=== PATIENT | male | born 1995 | race Caucasian/White ===

== ENCOUNTER 2020-07-19 08:20 | Outpatient (NON) | payer OTHER, SELFPAY ==
[2020-07-24 08:54] LABS: SARS-CoV-2 RNA PCR Positive
== END 2020-07-19 08:21 ==
LOC: ANHCOVIDDT 08:21
PROVIDERS: PCP Internal Medicine; Visit Provider Physician Assistant
DX: U07.1 COVID-19 (principal)
CPT/HCPCS: 87635; C9803; U0003

== ENCOUNTER → 2021-05-23 00:44 | Outpatient (CLI) | payer OTHER, SELFPAY ==
[2021-05-23 18:08] LABS: SARS-CoV-2 RNA PCR Negative
== END ==
PROVIDERS: PCP Internal Medicine; Visit Provider Physician Assistant
DX: Z20.822 Contact with and (suspected) exposure to COVID-19 (principal); R09.89 Other specified symptoms and signs involving the circulatory and respiratory systems
CPT/HCPCS: C9803; U0003; U0005

== ENCOUNTER 2022-09-08 16:07 | Outpatient (CLI) | payer BC, SELFPAY ==
[2022-09-08 17:30] LABS: Influenza A QL RT-PCR Negative (Negative); Influenza B QL RT-PCR Negative (Negative)
== END 2022-09-08 16:08 | disposition home or self-care (01) ==
LOC: ANHLAB 16:10
PROVIDERS: PCP Internal Medicine; Visit Provider Internal Medicine
DX: R50.9 Fever, unspecified (principal)
CPT/HCPCS: 87502

== ENCOUNTER 2022-11-26 16:15 | Emergency (ER) | payer BC, SELFPAY ==
--- NOTE | ~2022-11-26 | US_ITS ---
US venous doppler LE RT DATE: 11/26/2022 17:03 INDICATION: Swelling and erythema of right lower extremity TECHNIQUE: Real-time and color flow imaging and Doppler analysis of the veins of the right lower extr emity COMPARISON: None FINDINGS: . There is spontaneous and phasic flow and normal augmentation and color flow signal and no rmal compression of the right common femoral, femoral and popliteal veins. The posterior tibial and peroneal veins not visualized, apparently due to body habitus IMPRESSION: Posterior tibial and peroneal veins are not visualized, apparently due to body habitus No evidence of deep venous thrombosis of common femoral, femoral or popliteal veins Reviewed, dictated and finalized at [facility]. Reviewed, dictated and finalized at location [facility]. IMPRESSION: Posterior tibial and peroneal veins are not visualized, apparently due to body habitus No evidence of deep venous thrombosis of common femoral, femoral or popliteal v eins
[2022-11-26 16:25] VITALS: BP 145/88; PULSE 98; RESP 19; TEMP 37.1; O2SAT 98
--- NOTE | 2022-11-26 17:17 | ED.GENADULT ---
HPI - General Adult General Chief complaint: Extremity Problem,Nontraumatic Stated complaint: right leg swelling possible cellulitis Time Seen by Provider: 11/26/22 17:15 Source: RN notes reviewed History of Present Illness HPI narrative: Patient presents emergency department from home for right leg redness. Patient states he has had a history of cellulitis in his right lower leg several times before in the past. He states he began to notice redness of his right lower leg 2 days ago. States was associated with a fever up to 101 degrees but states he has had no fevers today. He denies any trauma or injury denies any open wounds states he does have a history of chronic swelling in his legs and sees a vein doctor and is on spironolactone. He denies any chest pain or shortness of breath denies any numbness or tingling of the extremities. Patient was able to to review his old medications list and does note that he has been on Keflex before in the past with good resolution Related Data Home Medications Medication Instructions Recorded Confirmed fexofenadine 180 mg tablet 180 mg PO DAILY 09/17/19 09/10/22 (Isa Allergy) multivitamin (Multiple Vitamins 1 tablet PO DAILY 09/17/19 09/10/22 tablet) cholecalciferol (vitamin D3) 125 10,000 unit PO DAILY 12/19/20 09/10/22 mcg (5,000 unit) capsule magnesium 250 mg tablet 250 mg PO DAILY 07/17/21 09/10/22 omega 0-ppx-yaw-fish oil 1,200 mg cap PO 07/17/21 09/10/22 (144 mg-216 mg) capsule (Fish Oil) fluticasone propionate 50 1 spray intranasal DAILY 11/19/22 mcg/actuation nasal spray,suspension (Flonase Allergy Relief) mecobalamin (vitamin B12) 1,000 1,000 mcg PO DAILY 11/19/22 mcg chewable tablet Allergies Allergy/AdvReac Type Severity Reaction Status Date / Time peanut Allergy Severe Hives Verified 11/26/22 17:21 egg Allergy Mild Hives Verified 11/26/22 17:21 lisinopril Allergy Mild Unknown Verified 11/26/22 17:21 Review of Systems Review of Systems: Gen. reports fever ENT: Denies congestion Respiratory: Denies shortness of breath or cough CV: Denies chest pain or palpitations GI: Denies abdominal pain nausea, emesis Musculoskeletal: Denies back pain or muscle pain Neuro: Denies numbness, tingling, weakness or focal weakness Skin: See HPI Except as documented, all other systems reviewed and negative [facility] Past Medical History Medical History COVID-19 Family History Family History Father Hypertension Mother Patient's mother is in good health Social History Social History Smoking status: Never smoker Second hand tobacco smoke exposure: No Alcohol intake: current Lack of Transportation: No Lack of Food: Never True Current Housing: I Have Housing Concerned About Future Housing: No Difficulty Paying Gas/Electric Bills: No Difficulty Paying for Meds: No Currently Unemployed: No Education: High School Diploma/GED Difficulty w/ Childcare or Family Care: No Exam Narrative: APPEARANCE: No acute distress, nontoxic, resting in bed EYES: EOMI HEENT: Normocephalic, atraumatic RESPIRATORY: No respiratory distress Clear to auscultation bilaterally with no rhonchi wheezing or rales. CARDIOVASCULAR: Regular rate and rhythm without murmurs rubs or gallops. ABDOMINAL: Soft, nontender, nondistended MUSCULOSKELETAl: Moves all extremities. No clubbing, cyanosis 4+ edema in the bilateral lower extremities, right dorsalis pedis pulse 2+ NEURO: Awake and alert. Following commands, speech normal, no focal deficits SKIN:: Warm, dry. No rashes lesions or abrasions erythema of the right lower extremity that starts proximal to the ankle and goes to the mid lower leg that is circumferential but does not extend up past the mid tibia there is no open wounds drainage or fluctuance PSYCH
[2022-11-26] MEDS: CEPHALEXIN 500 MG CAPSULE PO (17:21)
== END 2022-11-26 17:35 | disposition home or self-care (01) ==
PROVIDERS: Emergency Provider Emergency Medicine; PCP Internal Medicine
DX: L03.115 Cellulitis of right lower limb (principal); Z79.51 Long term (current) use of inhaled steroids; Z79.84 Long term (current) use of oral hypoglycemic drugs
CPT/HCPCS: 93971; 99284; A9270

== ENCOUNTER 2022-11-30 17:00 | Outpatient (CLI) | payer BC, SELFPAY ==
[2022-11-30 17:47] LABS: Influenza A QL RT-PCR Negative (Negative); Influenza B QL RT-PCR Negative (Negative); SARS-CoV-2 RNA PCR Negative
== END 2022-11-30 17:01 | disposition home or self-care (01) ==
LOC: ANHLAB 17:01
PROVIDERS: PCP Internal Medicine; Visit Provider Internal Medicine
DX: R50.9 Fever, unspecified (principal); Z20.822 Contact with and (suspected) exposure to COVID-19
CPT/HCPCS: 87636

== ENCOUNTER 2022-12-01 14:15 | Outpatient (CLI) | payer BC, SELFPAY ==
[2022-12-01 15:14] LABS: Basophils Absolute Auto 0.1 K/mm3 (0.0-0.1); Basophils Percent Auto 0.7 % (0.2-1.2); Eosinophils Absolute Auto 0.3 K/mm3 (0-0.3); Eosinophils Percent Auto 4.1 % (0-4.4); Hematocrit 42.7 % (42.0-52.0); Hemoglobin 13.6 g/dL (14.0-18.0); Immature Granulocyte Absolute 0.26 K/mm3 (0.00-0.031); Immature Granulocyte Percent A 3.6 % (0-0.5); Lymphocytes Absolute Auto 2.56 K/mm3 (0.9-3.2); Lymphocytes Percent Auto 35.2 % (18.3-44.2); Mean Corpuscular HGB Conc 31.9 g/dl (32-36); Mean Corpuscular Hemoglobin 28.3 pg (26-34); Mean Platelet Volume 9.9 fl (7.4-10.4); Monocytes Absolute Auto 0.7 K/mm3 (0.1-0.6); Monocytes Percent Auto 9.4 % (2.6-8.5); Neutrophils Absolute Auto 3.4 K/mm3 (1.3-6.7); Platelet Count Result 269 k/mm3 (150-375); Red Cell Distribution Width 14.5 % (11.5-14.5); White Blood Count 7.3 K/mm3 (4.5-10.0)
[2022-12-01 15:35] LABS: Alanine Aminotransferase 26 U/L (6-50); Albumin Level 4.2 g/dL (3.5-5.1); Alkaline Phosphatase 70 U/L (38-126); Anion Gap 12 mmol/L (8-16); Aspartate Amino Transferase 26 U/L (17-59); Bilirubin,Total 0.5 mg/dL (0.2-1.3); Blood Urea Nitrogen 14 mg/dL (9-20); Calcium 8.7 mg/dL (8.4-10.2); Carbon Dioxide 24 mmol/L (22-30); Chloride 104 mmol/L (98-107); Cholesterol 141 mg/dL (0-200); Estimated Glomerular Filt Rate > 60; Glucose 128 mg/dL (65-110); HDL Direct 20 mg/dL; Potassium 4.3 mmol/L (3.4-5.0); Sodium 140 mmol/L (137-145); Triglycerides 180 mg/dL (<150)
[2022-12-01 15:45] LABS: LDL Cholesterol Direct 89 mg/dL
[2022-12-01 16:24] LABS: Creatinine Urine 4.6 mg/dL
[2022-12-01 16:44] LABS: Folic Acid > 20.0 ng/mL (2.76->20)
[2022-12-01 16:49] LABS: Microalbumin Urine Random < 6.0 mg/L (0-16.7)
[2022-12-01 16:50] LABS: Hemoglobin A1C 6.9 % (<5.7)
[2022-12-05 13:26] LABS: Testosterone Free 6.3 pg/mL (35.0-155.0); Testosterone Total 41 ng/dL (250-1100)
== END 2022-12-01 14:16 | disposition home or self-care (01) ==
LOC: ANHLAB 14:16
PROVIDERS: PCP Internal Medicine; Visit Provider Internal Medicine
DX: E11.9 Type 2 diabetes mellitus without complications (principal); E78.5 Hyperlipidemia, unspecified; R53.83 Other fatigue
CPT/HCPCS: 36415; 80053; 80061; 82043; 82607; 82746; 83036; 84402; 84403; 84443; 85025

== ENCOUNTER 2023-05-14 20:52 | Inpatient (IN) | payer BC, SELFPAY ==
[2023-05-14] VITALS (13 sets, daily range): BP systolic 150–157; BP diastolic 71–83; PULSE 111–127; RESP 15–27; TEMP 36.7; O2SAT 96–100
--- NOTE | ~2023-05-14 | US_ITS ---
EXAMINATION: US soft tissue LE RT DATE: 05/17/2023 15:12 INDICATION: Right lower limb cellulitis. Fever. TECHNIQUE: Multiple grayscale and Doppler ultrasound images of the right lower limb were obtained. COMPARISON: None FINDINGS: There is hyperechoic soft tissue and edema in the right calf, consistent with cellulitis. N o abscess. IMPRESSION: 1. Right calf cellulitis. No abscess. Reviewed, dictated and finalized at location [facility].
--- NOTE | ~2023-05-14 | US_ITS ---
EXAMINATION: US venous doppler LE RT DATE: 05/15/2023 13:37 INDICATION: swelling, erythema . TECHNIQUE: Grayscale images without and with compression and Doppler images of the right lower extrem ity veins were obtained. COMPARISON: None FINDINGS: Difficult examination due to body habitus. The right common femoral vein, profunda (deep) femoral vei n, femoral vein, popliteal vein, peroneal vein, posterior tibial veins, and greater saphenous vein ar e patent. The right gastrocnemius vein was not evaluated. IMPRESSION: Patent right lower extremity veins. No evidence of deep venous thrombosis. Reviewed, dictated and finalized at location [facility].
--- NOTE | ~2023-05-14 | XR_ITS ---
XR chest 1V portable 05/17/2023 08:13 Indication: Fever Procedure: AP portable chest Comparison: Comparison to multiple prior studies sequentially, with oldest reviewed study dated 10/26. Findings: Cardiomegaly. Mild interstitial edema. No pleural effusion or pneumothorax. No acute osseou s abnormality. Impression: 1: Cardiomegaly with mild interstitial edema. Reviewed, dictated and finalized at location L. Impression: 1: Cardiomegaly with mild interstitial edema.
--- NOTE | ~2023-05-14 | XR_ITS ---
XR chest 1V portable DATE: 05/15/2023 11:59 INDICATION: Shortness of breath TECHNIQUE: Portable AP chest on 05/15/2023 at 1155 hours COMPARISON: 03/17/2019 PA and lateral chest FINDINGS: Normal heart size. No pulmonary infiltrate or consolidation, pleural effusion or pulmonary vascular congestion or pneumothorax is detected. IMPRESSION: No active cardiopulmonary disease Reviewed, dictated and finalized at location A.
--- NOTE | 2023-05-14 22:04 | ED.GENADULT ---
HPI - General Adult General Chief complaint: Skin/Abscess/Foreign Body <Kaleb Cheney PA-C - Last Filed: 05/15/23 02:50> Stated complaint: right injury-cellulitis <YESENIA Esparza Last Filed: 05/15/23 02:50> Time Seen by Provider: 05/14/23 21:33 <Kaleb Cheney PA-C - Last Filed: 05/15/23 02:50> Source: patient <YESENIA Esparza Last Filed: 05/15/23 02:50> Mode of arrival: ambulatory <YESENIA Esparza Last Filed: 05/15/23 02:50> Limitations: no limitations <Kaleb Cheney PA-C - Last Filed: 05/15/23 02:50> History of Present Illness HPI narrative: This is a 27-year-old male with PMH of HTN, DM T2, morbid obesity who presents to the ED with chief complaint of possible skin infection to the right lower leg onset this morning. Patient reports that he has had recurrent cellulitis in this leg. Reports pain, erythema and swelling that has fairly rapidly progressed over the course of the day. States she has done well in the past on outpatient antibiotics but has not had to be admitted for cellulitis as well. States he has a history of lymphedema in that leg and feels that a recent skin crack may have caused the cellulitis this time. Endorses chills but no recorded fevers. Endorses nausea that has since resolved. Denies any other lesions, trauma or injury. Denies any blood clot history. <Kaleb Cheney PA-C - Last Filed: 05/15/23 02:50> Related Data Home medications: Home Medications Medication Instructions Recorded Confirmed fexofenadine 180 mg tablet 180 mg PO DAILY PRN Allergy 09/17/19 05/15/23 (Isa Allergy) Symptoms multivitamin (Multiple Vitamins 1 tablet PO DAILY 09/17/19 05/15/23 tablet) cholecalciferol (vitamin D3) 125 10,000 unit PO DAILY 12/19/20 05/15/23 mcg (5,000 unit) capsule magnesium 250 mg tablet 250 mg PO Q12H 07/17/21 05/15/23 mecobalamin (vitamin B12) 1,000 1,000 mcg PO HS 11/19/22 05/15/23 mcg chewable tablet montelukast 10 mg tablet 10 mg PO HS 05/15/23 05/15/23 <Kaleb Cheney PA-C - Last Filed: 05/15/23 02:50> Allergies/adverse reactions: Allergies Allergy/AdvReac Type Severity Reaction Status Date / Time peanut Allergy Severe Hives Verified 05/15/23 01:41 egg Allergy Mild Hives Verified 05/15/23 01:41 lisinopril Allergy Mild Unknown Verified 05/15/23 01:41 <Kaleb Cheney PA-C - Last Filed: 05/15/23 02:50> Review of Systems Review of Systems: All systems as dictated in HPI <Kaleb Cheney PA-C - Last Filed: 05/15/23 02:50> [facility] Past Medical History Medical History: Medical History Anxiety and depression Asthma Bilateral lower extremity edema Body mass index (BMI) greater than 70 in adult (08/08/15) Cellulitis of right leg COVID-19 Essential (primary) hypertension Hematochezia Hyperglycemia Lymphedema Morbid (severe) obesity due to excess calories MAINOR (obstructive sleep apnea) Pure hypercholesterolemia Sepsis Type 2 diabetes mellitus Vitamin D deficiency <Kaleb Cheney PA-C - Last Filed: 05/15/23 02:50> Surgical History Surgical History: Surgical History History of tonsillectomy <Kaleb Cheney PA-C - Last Filed: 05/15/23 02:50> Family History Family History: Family History (Updated 05/15/23 @ 01:55 by Molina Branch RN) Father Hypertension Diabetes mellitus Anemia History of heart surgery Colon cancer Mother Autoimmune disorder Grandparent Skin cancer Grandparent Cancer Grandparent Glaucoma <Kaleb Cheney PA-C - Last Filed: 05/15/23 02:50> Social History Social History: Social History Smoking status: Never smoker Second hand tobacco smoke exposure: No Alcohol intake: current Drinks per week: 1 Substance use: never Lack of Transportation: No Lack of Food: Never Tr
[2023-05-14 22:30] LABS: Basophils Percent Auto 0.3 % (0.2-1.2); Eosinophils Absolute Auto 0.2 K/mm3 (0-0.3); Eosinophils Percent Auto 1.1 % (0-4.4); Hemoglobin 12.9 g/dL (14.0-18.0); Immature Granulocyte Absolute 0.07 K/mm3 (0.00-0.031); Immature Granulocyte Percent A 0.5 % (0-0.5); Lymphocytes Absolute Auto 0.74 K/mm3 (0.9-3.2); Mean Corpuscular HGB Conc 32.3 g/dl (32-36); Mean Corpuscular Hemoglobin 28.9 pg (26-34); Mean Corpuscular Volume 89.7 fl (80-100); Mean Platelet Volume 10.3 fl (7.4-10.4); Monocytes Absolute Auto 0.4 K/mm3 (0.1-0.6); Monocytes Percent Auto 2.7 % (2.6-8.5); Neutrophils Absolute Auto 13.5 K/mm3 (1.3-6.7); Neutrophils Percent Auto 90.4 % (45.5-73.1); Platelet Count Result 234 k/mm3 (150-375); Red Blood Count 4.46 M/mm3 (4.6-6.20); White Blood Count 14.9 K/mm3 (4.5-10.0)
[2023-05-14 22:52] LABS: Alanine Aminotransferase 28 U/L (6-50); Alkaline Phosphatase 63 U/L (38-126); Anion Gap 11 mmol/L (8-16); Aspartate Amino Transferase 32 U/L (17-59); Bilirubin,Total 0.4 mg/dL (0.2-1.3); Blood Urea Nitrogen 14 mg/dL (9-20); CRP 1.3 mg/dL (<1.0); Calcium 8.8 mg/dL (8.4-10.2); Carbon Dioxide 23 mmol/L (22-30); Chloride 106 mmol/L (98-107); Estimated CRCL calculation 191 ml/min; Estimated Glomerular Filt Rate > 60; Glucose 171 mg/dL (65-110); Potassium 4.4 mmol/L (3.4-5.0); Sodium 140 mmol/L (137-145)
[2023-05-14 23:07] LABS: Lactic Acid Reflex 2.9 mmol/L (0.7-2.0)
[2023-05-14] MEDS: ceFAZolin 1 GM/NS 50 ML 1 GM/50 ML BAG IVPB (23:24)
[2023-05-14] MEDS: SODIUM CHLORIDE 0.9% IV 1,000 ML 999 ML IV CONT ×2 (23:24)
[2023-05-15] VITALS (24 sets, daily range): BP systolic 110–155; BP diastolic 40–83; PULSE 112–130; RESP 16–27; TEMP 36.6–38.6; O2SAT 93–100; BMI 78.9
--- NOTE | 2023-05-15 01:25 | ADMGEN ---
This patient, Mike Kemp, was admitted to Medical Room 248-. Patient/family oriented to hospital policies and general routines including ID bracelet, bed and alarms, visiting hours, pain management, procedures, bathroom and other care routines, personal items, smoking policy, room service/diet, and visiting hours. Information on how to activate the Rapid Response Team has been discussed. Patient/Family are encouraged to report perceived risks to care and to ask questions if they do not understand what they are told or what they should do.
[2023-05-15 01:47] LABS: Reflex Lactic Acid Yes or No Add Lactic
[2023-05-15 02:50] LABS: Lactic Acid 2.9 mmol/L (0.7-2.0)
[2023-05-15] MEDS: SODIUM CHLORIDE 0.9% IV 1,000 ML 125 ML IV CONT ×2 (03:33→18:24)
--- NOTE | 2023-05-15 04:17 | PM.IMHP ---
H&P: HPI History of Present Illness Date/Time: 05/15/23 04:17 Chief Complaint: Cellulitis of right leg Narrative: 27-year-old male with a past medical history of class 3 morbid obesity BMI 78.9, obstructive sleep apnea, asthma, essential hypertension and diabetes who presented to the ER with self-reported history of cellulitis of right lower extremity. The patient reports that he felt in his usual health until around 17:00 on the day of presentation. He suddenly developed right lower extremity erythema and warmth. It was associated with some discomfort and body aches. The erythema rapidly progressed and worsened and he decided come to the ER a couple hours later. He has not had any abrasions or scrapes to his lower extremities but does have chronic lymphedema. He reports that he has had cellulitis in this extremity multiple times in the past. His last episode was about 2 or 3 months ago and he was managed with outpatient Keflex. He reports that since his last episode of cellulitis he has been officially diagnosed as diabetic. He has been on metformin for several months. He is A1c came back at 6.9% on April 08 any was started on Ozempic. He has not noticed any weeping or drainage from his extremities. He denies any known fevers or chills. However after patient had arrived on the medical floor the patient did spike fever with T-max of 101.4?. He is also noted to be tachycardic and had leukocytosis. In the ER 2 L of fluid was ordered but fluid administration was not completed until after the patient had arrived to the medical floor. Despite 2 L of fluid bolus patient did remain tachycardic. He reports a little bit of nausea earlier in the day but no vomiting. His not been able to track his weight at home due to limits of scales. He denies any chest pain or shortness of breath. He has not noticed any palpitations. He does have obstructive sleep apnea and had his most recent sleep study was in 2019. He has never been successful in complying with CPAP as he does not tolerate a full face mask. He reports shortness of breath if he tries to lay on his back in sleeve his symptoms are improved any lays on his side. Review of Systems Review of Systems: 12 systems were reviewed with pertinent positives and negatives per HPI. Except as documented in the HPI, all other systems were reviewed and are negative. [facility] Past Medical History Medical History (Updated 05/15/23 @ 07:02 by Patricia Jose DO) Anxiety and depression Asthma Body mass index (BMI) greater than 70 in adult (08/08/15) COVID-19 Essential (primary) hypertension Lymphedema of both lower extremities Morbid (severe) obesity due to excess calories BMI greater than 70 MAINOR (obstructive sleep apnea) Does not use CPAP at home Pure hypercholesterolemia Type 2 diabetes mellitus Vitamin D deficiency Surgical History Surgical History (Updated 05/15/23 @ 07:04 by Patricia Jose DO) History of colonoscopy with polypectomy Approximately 2019 History of tonsillectomy Family History Family History (Updated 05/15/23 @ 07:04 by Patricia Jose DO) Father Hypertension Diabetes mellitus Anemia History of heart surgery Colon cancer, Onset Age: 50 Mother Autoimmune disorder Grandparent Skin cancer Grandparent Cancer Grandparent Glaucoma Sibling Obesity Social History Social History (Updated 05/15/23 @ 07:05 by Patricia Jose DO) Social History: The patient is single and lives with his parents. 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 He drinks 2-3 shots of Tequila every week or 2. Code status: Full code Surrogate decision maker: Shira Justo (mother) Smoking status: Never smoker Second hand tobacco smoke exposure: No Alcohol intake: current Drinks per week: 1 Substance use: never Lack of Transportation: No Lack of Food: Never True Current Housing: I Have Housing Concerned About Future Housing: No Difficulty Paying Gas
--- NOTE | 2023-05-15 04:23 | ECG_ITS ---
Measurements Intervals [place] Rate: 127 P: 36 NE: 163 QRS: 17 QRSD: 111 T: 12 QT: 307 QTc: 446 Interpretive Statements SINUS TACHYCARDIA INTRAVENTRICULAR CONDUCTION DELAY DELAYED PRECORDIAL R/S TRANSITION LOW QRS VOLTAGE IN LIMB LEADS BASELINE ARTIFACT- AVF ABNORMAL ECG COMPARED TO ECG 06/26/2019 12:19:13 SINUS TACHYCARDIA NOW PRESENT Electronically Signed On 05-15-2023 7:09:36 CDT by Valdo Nichols D.O.
[2023-05-15] MEDS: ACETAMINOPHEN 325 MG TABLET 650 MG PO ×3 (04:57→18:24)
[2023-05-15 05:04] LABS: Hematocrit 39.9 % (42.0-52.0); Hemoglobin 12.2 g/dL (14.0-18.0); Mean Corpuscular HGB Conc 30.6 g/dl (32-36); Mean Corpuscular Hemoglobin 28.8 pg (26-34); Mean Corpuscular Volume 94.1 fl (80-100); Mean Platelet Volume 10.2 fl (7.4-10.4); Platelet Count Result 199 k/mm3 (150-375); Red Blood Count 4.24 M/mm3 (4.6-6.20); Red Cell Distribution Width 14.1 % (11.5-14.5); White Blood Count 15.3 K/mm3 (4.5-10.0)
[2023-05-15 05:19] LABS: Anion Gap 13 mmol/L (8-16); Blood Urea Nitrogen 13 mg/dL (9-20); Calcium 8.5 mg/dL (8.4-10.2); Carbon Dioxide 18 mmol/L (22-30); Chloride 108 mmol/L (98-107); Estimated CRCL calculation 173 ml/min; Estimated Glomerular Filt Rate > 60; Glucose 164 mg/dL (65-110); Potassium 3.9 mmol/L (3.4-5.0); Sodium 139 mmol/L (137-145)
[2023-05-15 05:21] LABS: Lactic Acid Reflex 2.3 mmol/L (0.7-2.0)
[2023-05-15 05:36] LABS: Band Neutrophils Percent 8 % (0-6); Lymphocytes Absolute Manual 0.76 K/mm3 (1.1-4.5); Monocytes Absolute Manual 0.61 K/mm3 (0.1-0.90); Monocytes Percent Manual 4 % (3-9); Neutrophils Absolute Manual 13.92 K/mm3 (1.3-6.7); Neutrophils Percent Manual 83 % (46-73); Total Cells Counted 100
[2023-05-15 05:37] LABS: Platelet Estimate Adequate (Adequate); Schistocytes None Seen (NORMAL)
[2023-05-15 05:51] LABS: Procalcitonin 1.6 ng/mL
--- NOTE | 2023-05-15 07:21 | PM.IMPN ---
Progress Note: A&P Assessment and Plan (1) Sepsis: Qualifiers: Sepsis acute organ dysfunction status: without acute organ dysfunction Sepsis type: sepsis due to unspecified organism Qualified Code(s): A41.9 - Sepsis, unspecified organism Code(s): A41.9 - Sepsis, unspecified organism Status: Acute Assessment and Plan: Lactic acidosis 2.9, WBC 15,000, Tachy 130's, Febrile 101.4, procal 1.6, CRP 1.3 S/P 2 L fluid resuscitation. Patient is 221.8 kg. Lactic repeat 2.3. Now receiving a 3rd L of fluid. Repeat lactic 2.4. Continued elevation could be due to metformin as well. Holding now. Suspect source is cellulitis Received Cefazolin in the ED. Starting now on broad spectrum coverage with vanco and cefepime. IVF at 125 ml per hour. Still tachy at 120's. On tele. Acetaminophen prn for fever (2) Cellulitis of right lower extremity: Code(s): L03.115 - Cellulitis of right lower limb Status: Acute Assessment and Plan: Right lower extremity cellulitis (3) Type 2 diabetes mellitus: Qualifiers: Diabetes mellitus complication status: with hyperglycemia Diabetes mellitus assistant terminal manager insulin use: without skilled nursing use Qualified Code(s): E11.65 - Type 2 diabetes mellitus with hyperglycemia Code(s): E11.9 - Type 2 diabetes mellitus without complications Status: Acute Assessment and Plan: Hgb A1C 6.9% On metformin at home and Ozempic. Holding while inpatient. Accu checks and SSI BG ranging 160-170's (4) MAINOR (obstructive sleep apnea): Code(s): G47.33 - Obstructive sleep apnea (adult) (pediatric) Status: Acute Assessment and Plan: Order home settings with autotitrating orders Plan Broad spectrum abx IVF with bolus' Trend lactic Feeding:DM Analgesia:[place] 5-10 mg prn based on pain rating Thromboembolic prophylaxis: lovenox Ulcer prophylaxis: Pepcid Glycemic control: SSI and hypoglycemia protocol Bowel regimen: colace and miralax Lines: PIC Antibiotics: Vanco and cefe Subjective Date/time seen: 05/15/23 07:21 Interval history: This is a 27-year-old male with a past medical history of obesity, MAINOR, asthma, hypertension diabetes who presented to the ER overnight with a reported history of cellulitis to his right lower extremity. Prior to presentation he states he was in his usual state of health until the evening when he started to have erythema and pain to his right lower extremity. He also states he was having some body aches but no documented fever. He reports that he has had recurrent cellulitis episodes in this same extremity multiple times, with the last episode being 2-3 months ago and he was treated as an outpatient with Keflex. On arrival to the ED he was tachycardic in the 130's, BP 150/70, lactic 2.9, CRP, 1.3, WBCs 14.9, and febrile 101.4. He received 2 L of fluids in the ED and 1 gram of cefazolin. Blood cultures and MRSA swab pending. Repeat lactic remained elevated at 2.3 so he is currently receiving another bolus of fluids. 05/15: Patient appears unwell. He is mildly tachypneic and says that he was having some shortness of breath. Symptoms resolved with use of his albuterol inhaler. He does not have any inspiratory or expiratory wheeze on exam. He satting 97% on room air. He is flushed says that he has been having a fever off and on. Last documented fever was 101.4 on admission to the medical floor. His pain in his lower extremity is improved since receiving IV antibiotics and pain medication. He remains tachycardic on telemetry in the 120s with elevated heart rate in the 130s with activity. He has received a total 3 L bolus and his repeat lactic was 2.4. Patient appears euvolemic. He has been started on vancomycin and cefepime pain, will repeat a lactic this afternoon. He does say that he has increased production of sputum after wearing the CPAP. He normally does not wear a with CPAP at home. Given
[2023-05-15 07:55] LABS: Glucose Point of Care 125 mg/dl (65-105)
[2023-05-15] MEDS: SODIUM CHLORIDE 0.9% IV 1,000 ML 999 ML IV CONT ×2 (08:38→13:07)
[2023-05-15] MEDS: CEFEPIME 2 GM/NS 50 ML 2 GM/50 ML BAG IVPB ×3 (08:38→21:05)
[2023-05-15] MEDS: CHOLECALCIFEROL 1,000 UNITS TABLET 10000 UNITS PO (08:38)
[2023-05-15] MEDS: MULTIVITAMINS THERAPEUTIC TAB (*BKC) 1 TABLET PO (08:39)
[2023-05-15] MEDS: MAGNESIUM OXIDE 200 MG TABLET PO ×2 (08:39→21:05)
[2023-05-15] MEDS: LOSARTAN POTASSIUM 100 MG TABLET PO (08:39)
[2023-05-15] MEDS: metFORMIN HCL 500 MG TABLET PO (08:39)
[2023-05-15] MEDS: ATORVASTATIN 20 MG TABLET PO (08:40)
[2023-05-15] MEDS: FLUTICASONE/SALMETEROL 115-21 MCG INHALER 1 PUFF 2 PUFF INHALATION ×2 (08:49→20:19)
[2023-05-15] MEDS: ENOXAPARIN 40 MG/0.4 ML SYRINGE SUB-Q ×2 (08:54→21:51)
[2023-05-15] MEDS: AZELASTINE HCL NASAL 0.1% 137 MCG/SPR 30 ML BTL 2 SPRAY NASAL ×2 (09:03→21:04)
[2023-05-15] MEDS: HYDROcodone/acetaminophen (*CRX) 5-325 MG TABLET 1 TAB PO ×2 (09:03→15:30)
[2023-05-15 10:18] LABS: Lactic Acid Reflex 2.4 mmol/L (0.7-2.0)
[2023-05-15 11:50] LABS: Glucose Point of Care 177 mg/dl (65-105)
[2023-05-15 16:44] LABS: Lactic Acid Reflex 1.7 mmol/L (0.7-2.0)
[2023-05-15 17:03] LABS: Glucose Point of Care 119 mg/dl (65-105)
--- NOTE | 2023-05-15 19:37 | PC.NURSE ---
Spoke with patient about getting a bariatric bed, patient refused, wants to keep regular hospital bed
[2023-05-15] MEDS: CYANOCOBALAMIN 1,000 MCG TABLET 1000 MCG PO (21:05)
[2023-05-15] MEDS: MONTELUKAST SODIUM 10 MG TABLET PO (21:05)
[2023-05-15] MEDS: FAMOTIDINE 20 MG/2 ML VIAL IV PUSH (21:05)
[2023-05-15] MEDS: DOCUSATE SODIUM 100 MG CAPSULE PO (21:05)
[2023-05-15 21:32] LABS: Glucose Point of Care 102 mg/dl (65-105)
[2023-05-16] VITALS (15 sets, daily range): BP systolic 119–141; BP diastolic 58–77; PULSE 89–114; RESP 16–21; TEMP 36.4–38.4; O2SAT 93–98
[2023-05-16] MEDS: ACETAMINOPHEN 325 MG TABLET 650 MG PO ×2 (01:17→20:37)
[2023-05-16] MEDS: CEFEPIME 2 GM/NS 50 ML 2 GM/50 ML BAG IVPB ×3 (05:22→21:05)
[2023-05-16] MEDS: HYDROcodone/acetaminophen (*CRX) 5-325 MG TABLET 1 TAB PO (05:27)
[2023-05-16 05:33] LABS: Basophils Percent Auto 0.3 % (0.2-1.2); Eosinophils Percent Auto 0.2 % (0-4.4); Hematocrit 34.1 % (42.0-52.0); Hemoglobin 10.8 g/dL (14.0-18.0); Immature Granulocyte Absolute 0.12 K/mm3 (0.00-0.031); Immature Granulocyte Percent A 0.9 % (0-0.5); Lymphocytes Absolute Auto 1.61 K/mm3 (0.9-3.2); Lymphocytes Percent Auto 12.6 % (18.3-44.2); Mean Corpuscular HGB Conc 31.7 g/dl (32-36); Mean Corpuscular Hemoglobin 28.8 pg (26-34); Mean Corpuscular Volume 90.9 fl (80-100); Mean Platelet Volume 9.8 fl (7.4-10.4); Monocytes Percent Auto 7.7 % (2.6-8.5); Neutrophils Percent Auto 78.3 % (45.5-73.1); Platelet Count Result 169 k/mm3 (150-375); Red Blood Count 3.75 M/mm3 (4.6-6.20); Red Cell Distribution Width 14.6 % (11.5-14.5); White Blood Count 12.8 K/mm3 (4.5-10.0)
[2023-05-16 05:41] LABS: Alanine Aminotransferase 23 U/L (6-50); Albumin Level 3.5 g/dL (3.5-5.1); Alkaline Phosphatase 49 U/L (38-126); Anion Gap 11 mmol/L (8-16); Aspartate Amino Transferase 24 U/L (17-59); Bilirubin,Total 0.5 mg/dL (0.2-1.3); Blood Urea Nitrogen 10 mg/dL (9-20); Calcium 7.9 mg/dL (8.4-10.2); Carbon Dioxide 24 mmol/L (22-30); Chloride 105 mmol/L (98-107); Estimated CRCL calculation 158 ml/min; Estimated Glomerular Filt Rate > 60; Glucose 106 mg/dL (65-110); Magnesium 1.7 mg/dL (1.6-2.3); Potassium 3.8 mmol/L (3.4-5.0); Sodium 140 mmol/L (137-145)
--- NOTE | 2023-05-16 06:54 | PM.IMPN ---
Progress Note: A&P Assessment and Plan (1) Sepsis: Qualifiers: Sepsis acute organ dysfunction status: without acute organ dysfunction Sepsis type: sepsis due to unspecified organism Qualified Code(s): A41.9 - Sepsis, unspecified organism Code(s): A41.9 - Sepsis, unspecified organism Status: Acute Assessment and Plan: Lactic acidosis 2.9, WBC 15,000, Tachy 130's, Febrile 101.4, procal 1.6, CRP 1.3 S/P 2 L fluid resuscitation. Patient is 221.8 kg. Lactic repeat 2.3. Now receiving a 3rd L of fluid and maintenance fluids at 125 ml per hour. Lactic in the afternoon is 1.7. Suspect source is cellulitis Received Cefazolin in the ED. Starting now on broad spectrum coverage with vanco and cefepime. IVF decreased to 75 ml per hour. Tachycardia is improving, now more baseline 100's. On tele. Acetaminophen prn for fever Preliminary blood cultures with NGTD. MRSA swab pending. (2) Cellulitis of right lower extremity: Code(s): L03.115 - Cellulitis of right lower limb Status: Acute Assessment and Plan: Right lower extremity cellulitis Extensive erythema, edema, and warmth to right calf tracking up to the knee and down to the ankle. Redness is receding some from the ankle. Recurrent problem given his lymphedema. Ruled out lower extremity DVT (3) Type 2 diabetes mellitus: Qualifiers: Diabetes mellitus complication status: with hyperglycemia Diabetes mellitus jail insulin use: without terminal makeup operator use Qualified Code(s): E11.65 - Type 2 diabetes mellitus with hyperglycemia Code(s): E11.9 - Type 2 diabetes mellitus without complications Status: Acute Assessment and Plan: Hgb A1C 6.9% On metformin at home and Ozempic. Holding while inpatient. Accu checks and SSI BG ranging 160-170's (4) MAINOR (obstructive sleep apnea): Code(s): G47.33 - Obstructive sleep apnea (adult) (pediatric) Status: Acute Assessment and Plan: Order home settings with autotitrating orders Plan Broad spectrum abx IVF Trend labs Fioricet and Maxalt for migraine Feeding:DM Analgesia:[place] 5-10 mg prn based on pain rating Thromboembolic prophylaxis: lovenox Ulcer prophylaxis: Pepcid Glycemic control: SSI and hypoglycemia protocol Bowel regimen: colace and miralax Lines: PIV Antibiotics: Vanco and cefe Subjective Date/time seen: 05/16/23 06:54 Interval history: This is a 27-year-old male with a past medical history of obesity, MAINOR, asthma, hypertension diabetes who presented to the ER overnight with a reported history of cellulitis to his right lower extremity. Prior to presentation he states he was in his usual state of health until the evening when he started to have erythema and pain to his right lower extremity. He also states he was having some body aches but no documented fever. He reports that he has had recurrent cellulitis episodes in this same extremity multiple times, with the last episode being 2-3 months ago and he was treated as an outpatient with Keflex. On arrival to the ED he was tachycardic in the 130's, BP 150/70, lactic 2.9, CRP, 1.3, WBCs 14.9, and febrile 101.4. He received 2 L of fluids in the ED and 1 gram of cefazolin. Blood cultures and MRSA swab pending. Repeat lactic remained elevated at 2.3 so he is currently receiving another bolus of fluids. 05/15: Patient appears unwell. He is mildly tachypneic and says that he was having some shortness of breath. Symptoms resolved with use of his albuterol inhaler. He does not have any inspiratory or expiratory wheeze on exam. He satting 97% on room air. He is flushed says that he has been having a fever off and on. Last documented fever was 101.4 on admission to the medical floor. His pain in his lower extremity is improved since receiving IV antibiotics and pain medication. He remains tachycardic on telemetry in the 120s with elevated heart rate in the 130s with activ
[2023-05-16] MEDS: SODIUM CHLORIDE 0.9% IV 1,000 ML 125 ML IV CONT (07:26)
[2023-05-16 08:14] LABS: Glucose Point of Care 113 mg/dl (65-105)
[2023-05-16] MEDS: FLUTICASONE/SALMETEROL 115-21 MCG INHALER 1 PUFF 2 PUFF INHALATION ×2 (08:44→20:55)
[2023-05-16] MEDS: ENOXAPARIN 40 MG/0.4 ML SYRINGE SUB-Q ×2 (08:56→20:33)
[2023-05-16] MEDS: CHOLECALCIFEROL 1,000 UNITS TABLET 10000 UNITS PO (08:57)
[2023-05-16] MEDS: MULTIVITAMINS THERAPEUTIC TAB (*BKC) 1 TABLET PO (08:57)
[2023-05-16] MEDS: AZELASTINE HCL NASAL 0.1% 137 MCG/SPR 30 ML BTL 2 SPRAY NASAL ×2 (08:57→20:32)
[2023-05-16] MEDS: ATORVASTATIN 20 MG TABLET PO (08:57)
[2023-05-16] MEDS: DOCUSATE SODIUM 100 MG CAPSULE PO ×2 (08:57→20:33)
[2023-05-16] MEDS: polyethylene glycoL 3350 17 GM POWD.PACK PO (08:58)
[2023-05-16] MEDS: FAMOTIDINE 20 MG/2 ML VIAL IV PUSH ×2 (08:58→20:34)
[2023-05-16] MEDS: ACETAMINOPHEN/BUTALBITAL/CAFFEINE 325-50-40 MG TABLET (FIORICET) 1 TAB PO (09:14)
[2023-05-16] MEDS: MAGNESIUM OXIDE 200 MG TABLET PO ×2 (09:17→20:33)
[2023-05-16 11:51] LABS: Glucose Point of Care 133 mg/dl (65-105)
[2023-05-16] MEDS: RIZATRIPTAN BENZOATE 10 MG ODT PO ×2 (13:58→16:47)
--- NOTE | 2023-05-16 16:00 | PC.NURSE ---
Physical assessment by Student Nurse Izzy Baker/[facility] reviewed. Agree with same. Any procedures, care or medications that were given by student nurse were completed under direct supervision of this instructor or assigned staff nurse.
[2023-05-16 16:48] LABS: Glucose Point of Care 101 mg/dl (65-105)
[2023-05-16] MEDS: MONTELUKAST SODIUM 10 MG TABLET PO (20:33)
[2023-05-16] MEDS: CYANOCOBALAMIN 1,000 MCG TABLET 1000 MCG PO (20:33)
[2023-05-16] MEDS: diphenhydrAMINE HCl INJ 50 MG/ML VIAL 25 MG IV PUSH (20:33)
[2023-05-16] MEDS: PROCHLORPERAZINE EDISYLATE 10 MG/2 ML VIAL IV PUSH (20:34)
[2023-05-16] MEDS: KETOROLAC 30 MG/ML VIAL (*BKC) IV PUSH (20:34)
[2023-05-16 21:15] LABS: Vancomycin Trough 6.9 ug/mL (10.0-20.0)
[2023-05-16 21:46] LABS: Glucose Point of Care 107 mg/dl (65-105)
[2023-05-17] VITALS (17 sets, daily range): BP systolic 144–153; BP diastolic 74–86; PULSE 95–115; RESP 16–20; TEMP 37.4–39.3; O2SAT 93–98
[2023-05-17] MEDS: ACETAMINOPHEN 325 MG TABLET 650 MG PO ×2 (02:43→20:55)
[2023-05-17] MEDS: CEFEPIME 2 GM/NS 50 ML 2 GM/50 ML BAG IVPB (05:12)
[2023-05-17 06:01] LABS: Basophils Percent Auto 0.4 % (0.2-1.2); Eosinophils Absolute Auto 0.1 K/mm3 (0-0.3); Eosinophils Percent Auto 1.2 % (0-4.4); Hematocrit 33.9 % (42.0-52.0); Hemoglobin 10.4 g/dL (14.0-18.0); Immature Granulocyte Absolute 0.08 K/mm3 (0.00-0.031); Immature Granulocyte Percent A 0.8 % (0-0.5); Lymphocytes Absolute Auto 1.26 K/mm3 (0.9-3.2); Lymphocytes Percent Auto 12.2 % (18.3-44.2); Mean Corpuscular HGB Conc 30.7 g/dl (32-36); Mean Corpuscular Hemoglobin 28.4 pg (26-34); Mean Corpuscular Volume 92.6 fl (80-100); Mean Platelet Volume 10.7 fl (7.4-10.4); Monocytes Absolute Auto 0.6 K/mm3 (0.1-0.6); Monocytes Percent Auto 6.1 % (2.6-8.5); Neutrophils Absolute Auto 8.2 K/mm3 (1.3-6.7); Neutrophils Percent Auto 79.3 % (45.5-73.1); Platelet Count Result 171 k/mm3 (150-375); Red Blood Count 3.66 M/mm3 (4.6-6.20); Red Cell Distribution Width 14.3 % (11.5-14.5); White Blood Count 10.3 K/mm3 (4.5-10.0)
[2023-05-17 06:14] LABS: Alanine Aminotransferase 23 U/L (6-50); Albumin Level 3.5 g/dL (3.5-5.1); Alkaline Phosphatase 53 U/L (38-126); Anion Gap 11 mmol/L (8-16); Aspartate Amino Transferase 30 U/L (17-59); Bilirubin,Total 0.7 mg/dL (0.2-1.3); Blood Urea Nitrogen 10 mg/dL (9-20); Calcium 8.2 mg/dL (8.4-10.2); Carbon Dioxide 21 mmol/L (22-30); Chloride 106 mmol/L (98-107); Estimated CRCL calculation 173 ml/min; Estimated Glomerular Filt Rate > 60; Glucose 126 mg/dL (65-110); Magnesium 2.2 mg/dL (1.6-2.3); Potassium 4.3 mmol/L (3.4-5.0); Sodium 138 mmol/L (137-145)
--- NOTE | 2023-05-17 06:57 | PM.IMPN ---
Progress Note: A&P Assessment and Plan (1) Sepsis: Qualifiers: Sepsis acute organ dysfunction status: without acute organ dysfunction Sepsis type: sepsis due to unspecified organism Qualified Code(s): A41.9 - Sepsis, unspecified organism Code(s): A41.9 - Sepsis, unspecified organism Status: Acute Assessment and Plan: Lactic acidosis 2.9, WBC 15,000, Tachy 130's, Febrile 101.4, procal 1.6, CRP 1.3 S/P 2 L fluid resuscitation. Patient is 221.8 kg. Lactic repeat 2.3. Now receiving a 3rd L of fluid and maintenance fluids at 125 ml per hour. Lactic in the afternoon is 1.7. Suspect source is cellulitis Received Cefazolin in the ED. IVF decreased to 75 ml per hour. Tachycardia is improving, now more baseline 100's. On tele. Acetaminophen prn for fever Preliminary blood cultures with NGTD. MRSA negative. 05/17 febrile overnight with tmax 102.8. Leukocytosis continues to down trend but he is more tachycardic. Parekh cultured for u/a, chest xray, and blood cultures. Repeat lactic. Adjusting antibiotics this morning, adding meropenem and d/c'ing cefe. Will discuss case further with ID pharmacist. (2) Cellulitis of right lower extremity: Code(s): L03.115 - Cellulitis of right lower limb Status: Acute Assessment and Plan: Right lower extremity cellulitis Extensive erythema, edema, and warmth to right calf tracking up to the knee and down to the ankle. Redness is receding some from the ankle. Recurrent problem given his lymphedema. Ruled out lower extremity DVT (3) Type 2 diabetes mellitus: Qualifiers: Diabetes mellitus complication status: with hyperglycemia Diabetes mellitus oysterman insulin use: without oysterman use Qualified Code(s): E11.65 - Type 2 diabetes mellitus with hyperglycemia Code(s): E11.9 - Type 2 diabetes mellitus without complications Status: Acute Assessment and Plan: Hgb A1C 6.9% On metformin at home and Ozempic. Holding while inpatient. Accu checks and SSI BG ranging 160-170's (4) MAINOR (obstructive sleep apnea): Code(s): G47.33 - Obstructive sleep apnea (adult) (pediatric) Status: Acute Assessment and Plan: Order home settings with autotitrating orders Plan Broad spectrum abx Trend labs Try ibuprofen for headache. Mucinex added per his request for congestion. Stopping IV fluids and gave prn albuterol nebulizer for SOB. Feeding:DM Analgesia:[place] 5-10 mg prn based on pain rating Thromboembolic prophylaxis: lovenox Ulcer prophylaxis: Pepcid Glycemic control: SSI and hypoglycemia protocol Bowel regimen: colace and miralax Lines: PIV Antibiotics: Vanco and meropenem Subjective Date/time seen: 05/17/23 06:57 Interval history: This is a 27-year-old male with a past medical history of obesity, MAINOR, asthma, hypertension diabetes who presented to the ER overnight with a reported history of cellulitis to his right lower extremity. Prior to presentation he states he was in his usual state of health until the evening when he started to have erythema and pain to his right lower extremity. He also states he was having some body aches but no documented fever. He reports that he has had recurrent cellulitis episodes in this same extremity multiple times, with the last episode being 2-3 months ago and he was treated as an outpatient with Keflex. On arrival to the ED he was tachycardic in the 130's, BP 150/70, lactic 2.9, CRP, 1.3, WBCs 14.9, and febrile 101.4. He received 2 L of fluids in the ED and 1 gram of cefazolin. Blood cultures and MRSA swab pending. Repeat lactic remained elevated at 2.3 so he is currently receiving another bolus of fluids. 05/15: Patient appears unwell. He is mildly tachypneic and says that he was having some shortness of breath. Symptoms resolved with use of his albuterol inhaler. He does not have any inspiratory or expiratory wheeze on exam. He satting 97% on room air.
[2023-05-17 07:24] LABS: Procalcitonin 1.4 ng/mL
[2023-05-17] MEDS: FLUTICASONE/SALMETEROL 115-21 MCG INHALER 1 PUFF 2 PUFF INHALATION ×2 (08:24→19:29)
[2023-05-17 08:35] LABS: Glucose Point of Care 143 mg/dl (65-105)
[2023-05-17 09:01] LABS: Lactic Acid Reflex 2.2 mmol/L (0.7-2.0)
[2023-05-17] MEDS: CHOLECALCIFEROL 1,000 UNITS TABLET 10000 UNITS PO (09:21)
[2023-05-17] MEDS: ATORVASTATIN 20 MG TABLET PO (09:22)
[2023-05-17] MEDS: MULTIVITAMINS THERAPEUTIC TAB (*BKC) 1 TABLET PO (09:22)
[2023-05-17] MEDS: MAGNESIUM OXIDE 200 MG TABLET PO ×2 (09:22→20:55)
[2023-05-17] MEDS: AZELASTINE HCL NASAL 0.1% 137 MCG/SPR 30 ML BTL 2 SPRAY NASAL ×2 (09:23→20:54)
[2023-05-17] MEDS: ENOXAPARIN 40 MG/0.4 ML SYRINGE SUB-Q ×2 (09:23→20:54)
[2023-05-17] MEDS: polyethylene glycoL 3350 17 GM POWD.PACK PO (09:24)
[2023-05-17] MEDS: FAMOTIDINE 20 MG/2 ML VIAL IV PUSH ×2 (09:24→20:55)
[2023-05-17] MEDS: guaiFENesin 12 HR 600 MG TABCR 1200 MG PO ×2 (10:44→20:55)
[2023-05-17] MEDS: IBUPROFEN 600 MG TABLET PO ×2 (10:44→21:40)
[2023-05-17] MEDS: MEROPENEM 1 GM/NS 100 ML 1 GM/100 ML BAG IVPB ×3 (10:59→21:07)
[2023-05-17 11:42] LABS: Reflex Lactic Acid Yes or No Add Lactic
[2023-05-17 12:18] LABS: Glucose Point of Care 111 mg/dl (65-105)
[2023-05-17 12:39] LABS: Lactic Acid 1.6 mmol/L (0.7-2.0)
--- NOTE | 2023-05-17 15:43 | PC.NURSE ---
On 05/17/23, the student, [Harshal Castillo], provided care and completed [facility] documentation on this patient. I have reviewed the student's documentation and agree with the findings.
[2023-05-17 16:54] LABS: Glucose Point of Care 94 mg/dl (65-105)
[2023-05-17 18:12] LABS: Appearance Urine Clear (Clear); Bacteria Urine None Seen /hpf; Bilirubin Urine Negative (Negative); Blood Urine Negative (Negative); Color Urine Yellow (Yellow); Glucose Urine UA Negative (Negative); Ketones Urine Negative (Negative); Leukocyte Esterase Ur Negative LEU/UL (Negative); Nitrate Urine Negative (Negative); Non Pathogenic Casts 0-2; Protein Urine 1+ mg/dL (Negative); RBC Urine 0-2 /hpf (0-2); Specific Grav Ur 1.014 (1.001-1.035); Squamous Epithelial Cell Urine None seen /hpf (Few); Urobilinogen Urine 0.2 mg/dL (<2.0); WBC Urine 0-5 /hpf
[2023-05-17 18:22] LABS: Add Urine Microscopic? YES
[2023-05-17 20:55] LABS: Glucose Point of Care 106 mg/dl (65-105)
[2023-05-17] MEDS: MONTELUKAST SODIUM 10 MG TABLET PO (20:55)
[2023-05-17] MEDS: DOCUSATE SODIUM 100 MG CAPSULE PO (20:55)
[2023-05-17] MEDS: CYANOCOBALAMIN 1,000 MCG TABLET 1000 MCG PO (20:55)
[2023-05-17 23:43] LABS: Vancomycin Trough 14.9 ug/mL (10.0-20.0)
[2023-05-18] VITALS: PULSE 99
[2023-05-18 02:00] VITALS: RESP 19; O2SAT 97
[2023-05-18 04:00] VITALS: PULSE 99
[2023-05-18 05:31] LABS: Basophils Percent Auto 0.4 % (0.2-1.2); Eosinophils Absolute Auto 0.3 K/mm3 (0-0.3); Eosinophils Percent Auto 2.9 % (0-4.4); Hematocrit 29.6 % (42.0-52.0); Hemoglobin 9.3 g/dL (14.0-18.0); Immature Granulocyte Absolute 0.16 K/mm3 (0.00-0.031); Immature Granulocyte Percent A 1.6 % (0-0.5); Lymphocytes Absolute Auto 1.88 K/mm3 (0.9-3.2); Lymphocytes Percent Auto 18.5 % (18.3-44.2); Mean Corpuscular HGB Conc 31.4 g/dl (32-36); Mean Corpuscular Hemoglobin 28.3 pg (26-34); Mean Platelet Volume 10.2 fl (7.4-10.4); Monocytes Absolute Auto 0.9 K/mm3 (0.1-0.6); Monocytes Percent Auto 9.3 % (2.6-8.5); Neutrophils Absolute Auto 6.8 K/mm3 (1.3-6.7); Neutrophils Percent Auto 67.3 % (45.5-73.1); Platelet Count Result 206 k/mm3 (150-375); Red Blood Count 3.29 M/mm3 (4.6-6.20); Red Cell Distribution Width 14.2 % (11.5-14.5); White Blood Count 10.2 K/mm3 (4.5-10.0)
[2023-05-18] MEDS: MEROPENEM 1 GM/NS 100 ML 1 GM/100 ML BAG IVPB (05:40)
[2023-05-18 05:46] LABS: Alanine Aminotransferase 22 U/L (6-50); Albumin Level 3.5 g/dL (3.5-5.1); Alkaline Phosphatase 56 U/L (38-126); Anion Gap 7 mmol/L (8-16); Aspartate Amino Transferase 25 U/L (17-59); Bilirubin,Total 0.7 mg/dL (0.2-1.3); Blood Urea Nitrogen 9 mg/dL (9-20); Calcium 8.1 mg/dL (8.4-10.2); Carbon Dioxide 26 mmol/L (22-30); Chloride 106 mmol/L (98-107); Estimated CRCL calculation 213 ml/min; Estimated Glomerular Filt Rate > 60; Glucose 116 mg/dL (65-110); Magnesium 2.1 mg/dL (1.6-2.3); Potassium 3.7 mmol/L (3.4-5.0); Sodium 139 mmol/L (137-145)
[2023-05-18 06:00] VITALS: BP 139/57; PULSE 101; RESP 16; TEMP 37; O2SAT 93
[2023-05-18 08:00] VITALS: PULSE 109
[2023-05-18 08:21] LABS: Glucose Point of Care 108 mg/dl (65-105)
[2023-05-18] MEDS: AZELASTINE HCL NASAL 0.1% 137 MCG/SPR 30 ML BTL 2 SPRAY NASAL (09:32)
[2023-05-18] MEDS: ATORVASTATIN 20 MG TABLET PO (09:33)
[2023-05-18] MEDS: DOCUSATE SODIUM 100 MG CAPSULE PO (09:33)
[2023-05-18] MEDS: guaiFENesin 12 HR 600 MG TABCR 1200 MG PO (09:33)
[2023-05-18] MEDS: CHOLECALCIFEROL 1,000 UNITS TABLET 10000 UNITS PO (09:33)
[2023-05-18] MEDS: ENOXAPARIN 40 MG/0.4 ML SYRINGE SUB-Q (09:33)
[2023-05-18] MEDS: MAGNESIUM OXIDE 200 MG TABLET PO (09:33)
[2023-05-18] MEDS: FAMOTIDINE 20 MG/2 ML VIAL IV PUSH (09:33)
[2023-05-18] MEDS: polyethylene glycoL 3350 17 GM POWD.PACK PO (09:34)
[2023-05-18] MEDS: MULTIVITAMINS THERAPEUTIC TAB (*BKC) 1 TABLET PO (09:34)
[2023-05-18] MEDS: IBUPROFEN 600 MG TABLET PO (09:35)
--- NOTE | 2023-05-18 10:15 | PM.DS ---
DS: Admitting Diagnosis Discharge Date 05/18/2023 Admitting Diagnosis Sepsis, cellulitis of right lower extremity, type 2 diabetes, MAINOR, morbid obesity DS: Discharge Diagnosis Discharge Diagnosis (1) Sepsis: Qualifiers: Sepsis type: sepsis due to unspecified organism Sepsis acute organ dysfunction status: without acute organ dysfunction Qualified Code(s): A41.9 - Sepsis, unspecified organism Code(s): A41.9 - Sepsis, unspecified organism Status: Acute (2) Cellulitis of right lower extremity: Code(s): L03.115 - Cellulitis of right lower limb Status: Acute (3) Lymphedema of both lower extremities: Code(s): I89.0 - Lymphedema, not elsewhere classified Status: Acute (4) MAINOR (obstructive sleep apnea): Code(s): G47.33 - Obstructive sleep apnea (adult) (pediatric) Status: Acute (5) Morbid (severe) obesity due to excess calories: Code(s): E66.01 - Morbid (severe) obesity due to excess calories Status: Acute (6) Type 2 diabetes mellitus: Qualifiers: Diabetes mellitus termite control servicer insulin use: without residential use Diabetes mellitus complication status: with hyperglycemia Qualified Code(s): E11.65 - Type 2 diabetes mellitus with hyperglycemia Code(s): E11.9 - Type 2 diabetes mellitus without complications Status: Acute DS: Summary Hospital Course Reason for hospitalization: Patient was admitted for sepsis related to right lower extremity cellulitis Hospital Course: Patient was on broad-spectrum IV antibiotics and had recurrent fevers so antibiotics were escalated. However, blood cultures have been negative to date. Cellulitis has significantly improved and his pain is now gone. Ultrasound was negative for abscess showed consistent findings foot as expected for cellulitis. This is likely strep cellulitis. Discussed with ID far we will discharge on Augmentin 875/125 t.i.d. for 6 more days. Status at Discharge Cognitive/behavioral status at discharge: Awake alert oriented and pleasant Functional status at discharge: independent ambulation Overall status at discharge: patient is progressing back to baseline Time Spent with Patient Time attestation: Total time spent providing and/or coordinating discharge services:40 mins Time spent: Greater than 30 minutes Exam Narrative: General: obese, appears stated age, no acute distress HEENT: normocephalic, atraumatic. Mucous membranes moist. EOMI, PERRLA, bilateral sclera anicteric, no conjunctival injection. Neck supple without JVD, lymphadenopathy, or bruit. Respiratory: clear to auscultation bilaterally. No rales/rhonic/wheezes. Cardiovascular: Regular rate and rhythm, normal S1-S2 upon auscultation. No murmurs, rubs, or clicks. PMI is nondisplaced, capillary re-fill less than 3 second. Abdomen: Obese, round, no pulsatile masses, non-distended and non-tender. No rebound, no guarding. No CVA tenderness, no hepatosplenomegaly. Bowel sounds difficult to hear due to body habitus. No high pitch or tinkling sounds, resonant to percussion. Extremities: No cyanosis, clubbing. RLE with significant edema, erythema, and warmth which is indurated though much improved. Pulses are palpable 2/2. Active ROM to all four extremities. Neuro: Alert and orientated x 4. PERRLA. Cranial nerves 2-12 intact without focal deficit. Skin: Warm, dry, and intact. Facial flushing. Erythema and warmth to RLE. Psych: pleasant, cooperative, normal speech, normal affect, no hallucinations, no dysarthria DS: Data Data Completed and Pending Completed studies during hospitalization: Ultrasound right lower extremity with no findings of abscess Labs on day of discharge: Labs from last 24 hours 05/18/23 05/18/23 05/17/23 08:19 05:15 22:06 WBC 10.2 H RBC 3.29 L Hgb 9.3 L Hct 29.6 L MCV 90.0 MCH 28.3 MCHC 31.4 L RDW 14.2 Plt Count 206 MPV 10.2 Immature Gran % (Auto) 1.6 H N
[2023-05-18 10:27] VITALS: PULSE 101; RESP 18; O2SAT 92
[2023-05-18] MEDS: FLUTICASONE/SALMETEROL 115-21 MCG INHALER 1 PUFF 2 PUFF INHALATION (10:27)
[2023-05-18] MEDS: EUCERIN CREAM 120 GM JAR 1 APPLIC TOPICAL (10:35)
[2023-05-18 12:20] LABS: Glucose Point of Care 144 mg/dl (65-105)
== END 2023-05-18 13:31 | disposition home or self-care (01) | DRG 872 ==
LOC: ANHED 21:39 → ANH2MED 05-15 01:02
PROVIDERS: Nurse Practitioner Acute Care; Admitting Provider Internal Medicine; Emergency Provider Physician Assistant; PCP Internal Medicine; Visit Provider Nurse Practitioner
DX: A41.9 Sepsis, unspecified organism (principal); L03.115 Cellulitis of right lower limb; Z68.45 Body mass index [BMI] 70 or greater, adult; I89.0 Lymphedema, not elsewhere classified; G47.33 Obstructive sleep apnea (adult) (pediatric); E66.01 Morbid (severe) obesity due to excess calories; E11.65 Type 2 diabetes mellitus with hyperglycemia; I10 Essential (primary) hypertension; F41.8 Other specified anxiety disorders; J45.909 Unspecified asthma, uncomplicated; Z86.16 Personal history of COVID-19
CPT/HCPCS: 36415; 71045; 76882; 80048; 80053; 80202; 81001; 82948; 83605; 83735; 84145; 85025; 86140; 87040; 87081; 93005; 93971; 94640; 94660; 96361; 96365; 99285; A9270; G0378; J0690; J0692; J0780; J1200; J1650; J1885; J2185; J3370; J7030

== ENCOUNTER 2023-09-20 06:26 | Emergency (ER) | payer BC, SELFPAY ==
[2023-09-20] VITALS (7 sets, daily range): BP systolic 130–147; BP diastolic 59–82; PULSE 94–119; RESP 16–20; TEMP 36.6–36.9; O2SAT 95–100
--- NOTE | ~2023-09-20 | US_ITS ---
Duplex Sonography of the right extremity: Indication: Swelling Findings: Sagittal and transverse B-mode images as well as color-flow imaging were performed on the r ight femoral and popliteal veins. B-mode examination was done without and with compression in the tr ansverse plane. There is good visualization of the common femoral, proximal profunda femoral, superf icial femoral, greater saphenous, and popliteal veins. Normal flow was seen on color-flow imaging. N ormal compressibility was demonstrated. Calf veins are poorly evaluated. Thrombosis of the posterior tibial and peroneal veins cannot be excluded. Impression: No evidence of deep vein thrombosis involving the right femoral, greater saphenous, superficial femor al, or popliteal veins. Calf veins are poorly evaluated. Thrombus in the posterior tibial and peroneal veins cannot be exclud ed. Reviewed, dictated and finalized at location . 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 Calf veins are poorly evaluated. Thrombus in the posterior tibial and peroneal veins cannot be excluded.
--- NOTE | 2023-09-20 07:20 | ED.EXTPRO ---
HPI - Extremity Problem General Chief complaint: Extremity Problem,Nontraumatic Stated complaint: R leg cellulitis? Time Seen by Provider: 09/20/23 07:06 History of Present Illness HPI Narrative: Patient is a 28-year-old male who presents to the emergency department this morning complaining of right lower extremity redness and concern for cellulitis. Patient states that he has been having chronic recurrent cellulitis of his right lower extremity which in the past has responded well to outpatient oral antibiotics. Patient states the last time he had a recurrence of his right lower extremity cellulitis he needed to be admitted for IV antibiotics. This was the 1st time that patient needed to be admitted for his cellulitis. Patient also states that he does have chronic swelling of his right lower extremity which is worse than his left lower extremity. Patient states that he has been checked out in the past for a DVT given his right lower extremity swelling and that his right lower extremity bigger than his left, however, they never found a DVT. Patient denies any chest pain, shortness of breath, nausea, vomiting, abdominal pain, dysuria, hematuria, constipation, diarrhea, melena, hematochezia, fevers or chills. Patient also denies any headaches, dizziness, lightheadedness, blurry visions, focal weakness, numbness and or tingling. There are no other modifying, alleviating, or precipitating factors at this time. Related Data Home Medications Medication Instructions Recorded Confirmed fexofenadine 180 mg tablet 180 mg PO DAILY PRN Allergy 09/17/19 05/31/23 (Isa Allergy) Symptoms multivitamin (Multiple Vitamins 1 tablet PO DAILY 09/17/19 05/31/23 tablet) cholecalciferol (vitamin D3) 125 10,000 unit PO DAILY 12/19/20 05/31/23 mcg (5,000 unit) capsule magnesium 250 mg tablet 250 mg PO Q12H 07/17/21 05/31/23 mecobalamin (vitamin B12) 1,000 1,000 mcg PO HS 11/19/22 05/31/23 mcg chewable tablet Allergies Allergy/AdvReac Type Severity Reaction Status Date / Time peanut Allergy Severe Hives Verified 09/20/23 07:08 egg Allergy Mild Hives Verified 09/20/23 07:08 lisinopril Allergy Mild Unknown Verified 09/20/23 07:08 Review of Systems Review of Systems: All systems are reviewed and are negative unless stated otherwise in the HPI. [facility], [facility] Past Medical History Medical History Anxiety and depression Asthma Body mass index (BMI) greater than 70 in adult (08/08/15) COVID-19 Essential (primary) hypertension Lymphedema of both lower extremities Morbid (severe) obesity due to excess calories BMI greater than 70 MAINOR (obstructive sleep apnea) Does not use CPAP at home Pure hypercholesterolemia Type 2 diabetes mellitus Vitamin D deficiency Surgical History Surgical History History of colonoscopy with polypectomy Approximately 2019 History of tonsillectomy Family History Family History Father Hypertension Diabetes mellitus Anemia History of heart surgery Colon cancer, Onset Age: 50 Mother Autoimmune disorder Grandparent Skin cancer Grandparent Cancer Grandparent Glaucoma Sibling Obesity Social History Social History Social History: The patient is single and lives with his parents. 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 He drinks 2-3 shots of Tequila every week or 2. Code status: Full code Surrogate decision maker: Shira Kemp (mother) Smoking status: Never smoker Second hand tobacco smoke exposure: No Alcohol intake: current Drinks per week: 1 Substance use: never Lack of Transportation: No Lack of Food: Never True Current Housing: I Have Housing Concerned About Future Housing: No Difficulty Paying Gas/Electric Bills: No Difficulty Paying for Meds: No
[2023-09-20 08:53] LABS: Basophils Absolute Auto 0.1 K/mm3 (0.0-0.1); Basophils Percent Auto 0.5 % (0.2-1.2); Eosinophils Absolute Auto 0.4 K/mm3 (0-0.3); Eosinophils Percent Auto 3.1 % (0-4.4); Hematocrit 37.6 % (42.0-52.0); Hemoglobin 11.9 g/dL (14.0-18.0); Immature Granulocyte Absolute 0.08 K/mm3 (0.00-0.031); Immature Granulocyte Percent A 0.7 % (0-0.5); Lymphocytes Absolute Auto 2.14 K/mm3 (0.9-3.2); Mean Corpuscular HGB Conc 31.6 g/dl (32-36); Mean Corpuscular Hemoglobin 27.5 pg (26-34); Mean Corpuscular Volume 86.8 fl (80-100); Monocytes Percent Auto 8.6 % (2.6-8.5); Neutrophils Absolute Auto 7.6 K/mm3 (1.3-6.7); Neutrophils Percent Auto 68.1 % (45.5-73.1); Platelet Count Result 235 k/mm3 (150-375); Red Blood Count 4.33 M/mm3 (4.6-6.20); Red Cell Distribution Width 15.2 % (11.5-14.5); White Blood Count 11.2 K/mm3 (4.5-10.0)
--- NOTE | 2023-09-20 08:55 | PC.NURSE ---
Pt right lower pedal & post tibial pulses palpable. No open areas noted. Several blisters cover entire lower extremity. Pt states this is a chronic problem and flares up.
[2023-09-20 09:08] LABS: Alanine Aminotransferase 18 U/L (6-50); Albumin Level 3.6 g/dL (3.5-5.1); Alkaline Phosphatase 76 U/L (38-126); Anion Gap 9 mmol/L (8-16); Aspartate Amino Transferase 20 U/L (17-59); Bilirubin,Total 0.4 mg/dL (0.2-1.3); Blood Urea Nitrogen 13 mg/dL (9-20); Calcium 8.3 mg/dL (8.4-10.2); Carbon Dioxide 24 mmol/L (22-30); Chloride 104 mmol/L (98-107); Estimated CRCL calculation 186 ml/min; Estimated Glomerular Filt Rate > 60; Glucose 110 mg/dL (65-110); Sodium 137 mmol/L (137-145)
[2023-09-20 09:18] LABS: Erythrocyte Sedimentation Rate 85 mm/hr (0-20)
[2023-09-20 09:33] LABS: CRP 16.5 mg/dL (<1.0)
== END 2023-09-20 09:53 | disposition home or self-care (01) ==
PROVIDERS: Emergency Provider Emergency Medicine; PCP Internal Medicine
DX: L03.115 Cellulitis of right lower limb (principal); E11.9 Type 2 diabetes mellitus without complications; I10 Essential (primary) hypertension
CPT/HCPCS: 36415; 80053; 85025; 85652; 86140; 93971; 99284

== ENCOUNTER 2023-12-06 22:38 | Observation (INO) | payer BC, SELFPAY ==
--- NOTE | ~2023-12-06 | US_ITS ---
EXAMINATION: US venous doppler LE RT DATE: 12/07/2023 12:40 INDICATION: Right lower limb erythema. TECHNIQUE: Grayscale ultrasound images without and with compression and Doppler ultrasound images of the right lower extremity veins were obtained. COMPARISON: Ultrasound 09/20/2023 FINDINGS: The visualized portions of right common femoral vein, profunda (deep) femoral vein, femoral vein, and popliteal vein are patent. The calf veins are not well visualized due to morbid obesity. IMPRESSION: 1. No deep venous thrombosis. Reviewed, dictated and finalized at location A.
[2023-12-06 22:54] VITALS: BP 136/78; PULSE 113; RESP 20; TEMP 37.8; O2SAT 99
[2023-12-07 00:07] VITALS: BP 152/74; PULSE 117; RESP 16; TEMP 36.9; O2SAT 99
[2023-12-07 00:29] LABS: Basophils Absolute Auto 0.1 K/mm3 (0.0-0.1); Basophils Percent Auto 0.5 % (0.2-1.2); Eosinophils Absolute Auto 0.1 K/mm3 (0-0.3); Eosinophils Percent Auto 0.5 % (0-4.4); Hematocrit 40.8 % (42.0-52.0); Hemoglobin 12.5 g/dL (14.0-18.0); Immature Granulocyte Percent A 0.8 % (0-0.5); Lymphocytes Absolute Auto 0.86 K/mm3 (0.9-3.2); Lymphocytes Percent Auto 6.5 % (18.3-44.2); Mean Corpuscular HGB Conc 30.6 g/dl (32-36); Mean Corpuscular Hemoglobin 27.5 pg (26-34); Mean Corpuscular Volume 89.9 fl (80-100); Mean Platelet Volume 10.6 fl (7.4-10.4); Monocytes Absolute Auto 0.7 K/mm3 (0.1-0.6); Monocytes Percent Auto 5.2 % (2.6-8.5); Neutrophils Absolute Auto 11.4 K/mm3 (1.3-6.7); Neutrophils Percent Auto 86.5 % (45.5-73.1); Platelet Count Result 200 k/mm3 (150-375); Red Blood Count 4.54 M/mm3 (4.6-6.20); Red Cell Distribution Width 15.8 % (11.5-14.5); White Blood Count 13.2 K/mm3 (4.5-10.0)
--- NOTE | 2023-12-07 00:37 | ED.GENADULT ---
HPI - General Adult General Chief complaint: Skin/Abscess/Foreign Body Stated complaint: cellulitis Time Seen by Provider: 12/07/23 00:07 History of Present Illness HPI narrative: Patient is a 28-year-old obese male who presents to the emergency department this evening concerned that he has a cellulitis of his right lower extremity again. Patient does have a history of recurrent cellulitis which sometimes require admission for IV antibiotics. Patient states that he noticed it the redness to his right leg yesterday and today he started to develop a fever which prompted him to come to the emergency department for further evaluation. Patient denies any sick contacts at home or exposure to any COVID/ influenza as far as he is aware. He is currently denying any urinary symptoms including dysuria or hematuria, denies any chest pain or shortness of breath, denies any abdominal pain, constipation or diarrhea. There are no other modifying, alleviating, or precipitating factors at this time. Related Data Home Medications Medication Instructions Recorded Confirmed fexofenadine 180 mg tablet 180 mg PO DAILY PRN Allergy 09/17/19 05/31/23 (Isa Allergy) Symptoms multivitamin (Multiple Vitamins 1 tablet PO DAILY 09/17/19 05/31/23 tablet) cholecalciferol (vitamin D3) 125 10,000 unit PO DAILY 12/19/20 05/31/23 mcg (5,000 unit) capsule magnesium 250 mg tablet 250 mg PO Q12H 07/17/21 05/31/23 mecobalamin (vitamin B12) 1,000 1,000 mcg PO HS 11/19/22 05/31/23 mcg chewable tablet Allergies Allergy/AdvReac Type Severity Reaction Status Date / Time peanut Allergy Severe Hives Verified 12/06/23 23:02 egg Allergy Mild Hives Verified 12/06/23 23:02 lisinopril Allergy Mild Unknown Verified 12/06/23 23:02 Review of Systems Review of Systems: All systems are reviewed and are negative unless stated otherwise in the HPI. [facility] Past Medical History Medical History Anxiety and depression Asthma Body mass index (BMI) greater than 70 in adult (08/08/15) COVID-19 Essential (primary) hypertension Lymphedema of both lower extremities Morbid (severe) obesity due to excess calories BMI greater than 70 MAINOR (obstructive sleep apnea) Does not use CPAP at home Pure hypercholesterolemia Type 2 diabetes mellitus Vitamin D deficiency Surgical History Surgical History History of colonoscopy with polypectomy Approximately 2019 History of tonsillectomy Family History Family History Father Hypertension Diabetes mellitus Anemia History of heart surgery Colon cancer, Onset Age: 50 Mother Autoimmune disorder Grandparent Skin cancer Grandparent Cancer Grandparent Glaucoma Sibling Obesity Social History Social History Social History: The patient is single and lives with his parents. 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 He drinks 2-3 shots of Tequila every week or 2. Code status: Full code Surrogate decision maker: Shira Kemp (mother) Smoking status: Never smoker Second hand tobacco smoke exposure: No Alcohol intake: current Drinks per week: 1 Substance use: never Lack of Transportation: No Lack of Food: Never True Current Housing: I Have Housing Concerned About Future Housing: No Difficulty Paying Gas/Electric Bills: No Difficulty Paying for Meds: No Currently Unemployed: No Education: High School Diploma/GED Difficulty w/ Childcare or Family Care: No Spiritual care concerns: No Exam Narrative: General: Alert, awake, afebrile, in no acute distress. HEENT: PERRL, no rhinorrhea, no post nasal drip, oropharynx clear. Neck: Trachea midline, no JVD, no lymphadenopathy. Cardiovascular: Regular rate and rhythm, no murmurs, rubs or gallops, no peripheral edema
[2023-12-07 00:42] LABS: Alanine Aminotransferase 21 U/L (6-50); Albumin Level 4.1 g/dL (3.5-5.1); Alkaline Phosphatase 63 U/L (38-126); Anion Gap 7 mmol/L (4-12); Aspartate Amino Transferase 26 U/L (17-59); Bilirubin,Total 0.7 mg/dL (0.2-1.3); Blood Urea Nitrogen 17 mg/dL (9-20); CRP 8.2 mg/dL (<1.0); Carbon Dioxide 24 mmol/L (22-30); Chloride 103 mmol/L (98-107); Estimated CRCL calculation 162 ml/min; Estimated Glomerular Filt Rate > 60; Glucose 106 mg/dL (65-110); Potassium 4.3 mmol/L (3.4-5.0); Sodium 134 mmol/L (137-145)
[2023-12-07 01:16] LABS: Influenza A QL RT-PCR Negative (Negative); Influenza B QL RT-PCR Negative (Negative); RSV RNA, RT-PCR Negative (Negative); SARS-CoV-2 RNA PCR Negative (Negative)
[2023-12-07] MEDS: SODIUM CHLORIDE 0.9% IV 1,000 ML 999 ML IV CONT (01:22)
[2023-12-07] MEDS: ACETAMINOPHEN 325 MG TABLET 650 MG PO (01:24)
[2023-12-07 01:35] LABS: Lactic Acid Reflex 1.7 mmol/L (0.7-2.0)
[2023-12-07 01:47] LABS: Erythrocyte Sedimentation Rate 55 mm/hr (0-20)
--- NOTE | 2023-12-07 02:16 | PM.IMHP ---
H&P: HPI History of Present Illness Date/Time: 12/07/23 02:16 Chief Complaint: Recurrent Cellulitis Narrative: 28 y/o M presents here with recurrent cellulitis of the right lower extremity with PMH of anxiety/depression, HTN, lymphedema of BLE, morbid obesity, MAINOR (does not use home CPAP), HLD, diabetes, and vitamin-D deficiency. Patient presents here for further evaluation of his right lower extremity. Reports that his previously resolved cellulitis has returned. Has been intermittent over the last few years. Reports that he 1st noticed erythema to his RLE this morning, shortly thereafter developed a fever. Endorsing associated chills, nausea, diarrhea, and heat to his right lower extremity. 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 No recent long car rides or flights. No recent surgeries. No weeping or drainage. Patient reports compliance with diabetes medications. Patient on metformin and Ozempic (last dose on Tuesday). Last seen for RLE cellulitis on 09/20/2023 at [place] [facility], was able to be discharged home with Keflex 500 mg q.6 x7 days with complete resolution/return to baseline. R ankle tends to have woody appearance and firm quality at baseline. Last admission for RLE cellulitis from 05/14/23-05/18/23. Initial VS at presentation: 100.1? F, HR 113, RR 20, 136/78, and 99% on RA. ED workup showed: WBC 13.2, mild anemia, sodium 134, creatinine 1.0 with a GFR greater than 60, CRP 8.2, and viral PCR negative for flu/COVID/RSV. Review of Systems Review of Systems: All systems reviewed & are unremarkable except as noted in HPI and below PMFSH Past Medical History Medical History (Updated 12/07/23 @ 02:22 by Sabine Hernández APRN) Anxiety and depression Asthma Body mass index (BMI) greater than 70 in adult (08/08/15) COVID-19 Essential (primary) hypertension Hyperlipidemia Lymphedema of both lower extremities Morbid (severe) obesity due to excess calories BMI greater than 70 MAINOR (obstructive sleep apnea) Does not use CPAP at home Type 2 diabetes mellitus Vitamin D deficiency Surgical History Surgical History (Updated 12/07/23 @ 02:22 by Sabine Hernández APRN) History of colonoscopy with polypectomy Approximately 2019 History of tonsillectomy Family History Family History Father Hypertension Diabetes mellitus Anemia History of heart surgery Colon cancer, Onset Age: 50 Mother Autoimmune disorder Grandparent Skin cancer Grandparent Cancer Grandparent Glaucoma Sibling Obesity Social History Social History Social History: The patient is single and lives with his parents. He works full-time in [employer]. He drinks 2-3 shots of Tequila every week or 2. Code status: Full code Surrogate decision maker: Shira Kemp (mother) Smoking status: Never smoker Second hand tobacco smoke exposure: No Alcohol intake: current Drinks per week: 1 Substance use: never Lack of Transportation: No Lack of Food: Never True Current Housing: I Have Housing Concerned About Future Housing: No Difficulty Paying Gas/Electric Bills: No Difficulty Paying for Meds: No Currently Unemployed: No Education: High School Diploma/GED Difficulty w/ Childcare or Family Care: No Spiritual care concerns: No Meds Home Medications and Allergies Home Medications Medication Instructions Recorded Confirmed Type fexofenadine 180 mg tablet 180 mg PO DAILY PRN Allergy 09/17/19 05/31/23 History (Isa Allergy) Symptoms multivitamin (Multiple Vitamins 1 tablet PO DAILY 09/17/19 05/31/23 History tablet) cholecalciferol (vitamin D3) 125 10,000 unit PO DAILY 12/19/20 05/31/23 History mcg (5,000 unit) capsule magnesium 250 mg tablet 250 mg PO Q12H 07/17/21 05/31/23 History albuterol sulfate 90 mcg/actuation 2 puff inhalation Q4-6H PRN 11/19/22 05/31/23 Rx aer
--- NOTE | 2023-12-07 02:35 | PC.NURSE ---
Per phlebotomy they were only able to obtain one set of blood cultures. Notified EDP Dr. Borja
[2023-12-07 02:44] LABS: Glucose Point of Care 102 mg/dl (65-105)
[2023-12-07] MEDS: ceFAZolin 1 GM/NS 50 ML 1 GM/50 ML BAG IVPB ×2 (02:57→10:57)
[2023-12-07] MEDS: LACTATED RINGERS 1,000 ML 999 ML IV CONT (02:57)
[2023-12-07 03:02] LABS: Appearance Urine Clear (Clear); Bacteria Urine None Seen /hpf; Bilirubin Urine Negative (Negative); Blood Urine Negative (Negative); Color Urine Yellow (Yellow); Glucose Urine UA Negative (Negative); Ketones Urine Trace mg/dL (Negative); Leukocyte Esterase Ur Negative LEU/UL (Negative); Nitrate Urine Negative (Negative); Non Pathogenic Casts 0-2; Protein Urine Trace mg/dL (Negative); RBC Urine 0-2 /hpf (0-2); Squamous Epithelial Cell Urine Occasional /hpf (Few); Urobilinogen Urine 0.2 mg/dL (<2.0); WBC Urine 0-5 /hpf (0-3); pH Urine 6.5 (5.0-9.0)
[2023-12-07 03:05] VITALS: BP 146/76; PULSE 100; RESP 16; TEMP 37.5; O2SAT 95
[2023-12-07 03:10] LABS: Add Urine Microscopic? YES; Specific Grav Ur 1.035 (1.001-1.035)
[2023-12-07] MEDS: VANCOMYCIN 1,500 MG/NS 500 ML 1,500 MG/500 ML BAG 250 MG IVPB (03:24)
--- NOTE | 2023-12-07 03:57 | ADMGEN ---
This patient, Mike Kemp, was admitted to 3 Med Surg Room 329-01. Patient/family oriented to hospital policies and general routines including ID bracelet, bed and alarms, visiting hours, pain management, procedures, bathroom and other care routines, personal items, smoking policy, room service/diet, and visiting hours. Information on how to activate the Rapid Response Team has been discussed. Patient/Family are encouraged to report perceived risks to care and to ask questions if they do not understand what they are told or what they should do.
[2023-12-07 03:59] VITALS: BMI 72.6
[2023-12-07 04:00] VITALS: BP 153/74; PULSE 99; RESP 20; TEMP 36.4; O2SAT 96
[2023-12-07 04:18] LABS: Glucose Point of Care 103 mg/dl (65-105)
[2023-12-07 06:00] VITALS: BP 171/74; PULSE 107; RESP 20; TEMP 36.2; O2SAT 97
[2023-12-07 06:31] LABS: Basophils Percent Auto 0.4 % (0.2-1.2); Eosinophils Absolute Auto 0.1 K/mm3 (0-0.3); Hematocrit 36.4 % (42.0-52.0); Hemoglobin 11.5 g/dL (14.0-18.0); Immature Granulocyte Absolute 0.08 K/mm3 (0.00-0.031); Immature Granulocyte Percent A 0.9 % (0-0.5); Lymphocytes Absolute Auto 1.04 K/mm3 (0.9-3.2); Lymphocytes Percent Auto 11.3 % (18.3-44.2); Mean Corpuscular HGB Conc 31.6 g/dl (32-36); Mean Corpuscular Hemoglobin 27.4 pg (26-34); Mean Corpuscular Volume 86.7 fl (80-100); Mean Platelet Volume 10.1 fl (7.4-10.4); Monocytes Absolute Auto 0.6 K/mm3 (0.1-0.6); Monocytes Percent Auto 6.2 % (2.6-8.5); Neutrophils Absolute Auto 7.4 K/mm3 (1.3-6.7); Neutrophils Percent Auto 80.2 % (45.5-73.1); Platelet Count Result 213 k/mm3 (150-375); Red Cell Distribution Width 15.8 % (11.5-14.5); White Blood Count 9.2 K/mm3 (4.5-10.0)
[2023-12-07 06:43] LABS: Anion Gap 7 mmol/L (4-12); Blood Urea Nitrogen 14 mg/dL (9-20); Calcium 8.5 mg/dL (8.4-10.2); Carbon Dioxide 22 mmol/L (22-30); Chloride 108 mmol/L (98-107); Estimated CRCL calculation 179 ml/min; Estimated Glomerular Filt Rate > 60; Glucose 140 mg/dL (65-110); Potassium 3.9 mmol/L (3.4-5.0); Sodium 137 mmol/L (137-145)
[2023-12-07 07:24] LABS: Hemoglobin A1C 5.7 % (<5.7)
[2023-12-07 08:09] LABS: Glucose Point of Care 96 mg/dl (65-105)
[2023-12-07] MEDS: ENOXAPARIN 40 MG/0.4 ML SYRINGE SUB-Q (08:40)
[2023-12-07 10:48] LABS: Cholesterol 103 mg/dL (0-200); HDL Direct 26 mg/dL; Triglycerides 158 mg/dL (<150)
[2023-12-07] MEDS: ATORVASTATIN 20 MG TABLET PO (10:57)
[2023-12-07] MEDS: MULTIVITAMINS THERAPEUTIC TAB (*BKC) 1 TABLET PO (10:57)
[2023-12-07] MEDS: LOSARTAN POTASSIUM 100 MG TABLET PO (10:58)
[2023-12-07] MEDS: MAGNESIUM 13.5 MG TABLET (250 MG MAG GLUCONATE) PO (10:58)
[2023-12-07 11:01] LABS: LDL Cholesterol Direct 61 mg/dL
[2023-12-07 11:39] LABS: Glucose Point of Care 103 mg/dl (65-105)
[2023-12-07 12:52] LABS: MRSA (PCR) NOT DETECTED (NOT DETECTE)
--- NOTE | 2023-12-07 13:10 | PM.DS ---
DS: Admitting Diagnosis Discharge Date 12/07/2023 Admitting Diagnosis Cellulitis/Lymphedema/Sepsis without septic shock DS: Discharge Diagnosis Discharge Diagnosis (1) Sepsis: Qualifiers: Sepsis acute organ dysfunction status: without acute organ dysfunction Sepsis type: sepsis due to unspecified organism Qualified Code(s): A41.9 - Sepsis, unspecified organism Code(s): A41.9 - Sepsis, unspecified organism Status: Acute Assessment and Plan: - meets SIRS criteria: HR, WBC. No hypotension. - lactic acid: 1.7 - 30 mL/kg = 6120, given 1L and remains mildly tachycardiac. will add additional 1L of LR for total of 2L. - suspected source: RLE cellulitis - started on Ancef and Vancomycin on 12/06 - blood cultures drawn on 12/06 - UA added - trend labs (2) Cellulitis of right lower extremity: Code(s): L03.115 - Cellulitis of right lower limb Status: Acute Assessment and Plan: - started on Vancomycin and Ancef on 12/06 - US or RLE ordered due to extension to posterior knee and asymmetry in swelling - wound culture, if obtainable - wound consult placed, cellulitis currently complicated by lymphadenopathy - see above (3) Type 2 diabetes mellitus: Qualifiers: Diabetes mellitus complication status: with hyperglycemia Diabetes mellitus [facility] insulin use: without meterman use Qualified Code(s): E11.65 - Type 2 diabetes mellitus with hyperglycemia Code(s): E11.9 - Type 2 diabetes mellitus without complications Status: Acute Assessment and Plan: - hypoglycemia protocol - POC blood glucose ACHS - home medication hold - metformin and Ozempic (NF) - correct regimen ordered - low dose TIDWM and HS - A1C 6.9% in 11/2022, update (4) Essential (primary) hypertension: Code(s): I10 - Essential (primary) hypertension Status: Acute Assessment and Plan: - chronic, currently 152/74 - continue home medications: Med rec not completed this time, hydralazine p.r.n. IVP in interim - monitor Plan Disposition: Patient discharged to home ambulatory with no acute complaints. DS: Summary Hospital Course Reason for hospitalization: Cellulitis/Lymphedema/Sepsis without septic shock Hospital Course: Admission: 28 y/o M presents here with recurrent cellulitis of the right lower extremity with PMH of anxiety/depression, HTN, lymphedema of BLE, morbid obesity, MAINOR (does not use home CPAP), HLD, diabetes, and vitamin-D deficiency. Patient presents here for further evaluation of his right lower extremity.? Reports that his previously resolved cellulitis has returned.? Has been intermittent over the last few years. Reports that he 1st noticed erythema to his RLE this morning, shortly thereafter developed a fever.? Endorsing associated chills, nausea, diarrhea, and heat to his right lower extremity. 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 No recent long car rides or flights.? No recent surgeries.? No weeping or drainage. ? Patient reports compliance with diabetes medications. Patient on metformin and Ozempic (last dose on Tuesday).? Last seen for RLE cellulitis on 09/20/2023 at [facility], was able to be discharged home with Keflex 500 mg q.6 x7 days with complete resolution/return to baseline. R ankle tends to have woody appearance and firm quality at baseline. Last admission for RLE cellulitis from 05/14/23-05/18/23. Initial VS at presentation:? 100.1? F, HR 113, RR 20, 136/78, and 99% on RA. ED workup showed:? WBC 13.2, mild anemia, sodium 134, creatinine 1.0 with a GFR greater than 60, CRP 8.2, and viral PCR negative for flu/COVID/RSV. 12/06: DISCHARGED Patient with no complaints, remained afebrile overnight and normal WBC. Blood cultures with no growth and no open wound present to RLE and venous dopplers negative for DVT. Patient ambulating on own and was discharged to home on PO ABX Keflex, recommended referral to lymph
== END 2023-12-07 14:05 | disposition home or self-care (01) ==
LOC: ANHED 12-07 02:08 → ANH3MEDSUR 12-07 04:06
PROVIDERS: Nurse Practitioner Family; Student in an Organized Health Care Education/Training Program; Admitting Provider Internal Medicine; Emergency Provider Emergency Medicine; PCP Physician Assistant; Visit Provider Hospitalist
DX: A41.9 Sepsis, unspecified organism (principal); L03.115 Cellulitis of right lower limb; R59.0 Localized enlarged lymph nodes; E11.65 Type 2 diabetes mellitus with hyperglycemia; I10 Essential (primary) hypertension; E66.01 Morbid (severe) obesity due to excess calories; Z68.45 Body mass index [BMI] 70 or greater, adult; F41.9 Anxiety disorder, unspecified; J45.909 Unspecified asthma, uncomplicated; Z20.822 Contact with and (suspected) exposure to COVID-19; F32.A Depression, unspecified; G47.33 Obstructive sleep apnea (adult) (pediatric); E78.00 Pure hypercholesterolemia, unspecified; E55.9 Vitamin D deficiency, unspecified; Z86.16 Personal history of COVID-19; F10.90 Alcohol use, unspecified, uncomplicated; Z79.2 Long term (current) use of antibiotics; Z79.51 Long term (current) use of inhaled steroids; Z79.84 Long term (current) use of oral hypoglycemic drugs; Z79.85 Long-term (current) use of injectable non-insulin antidiabetic drugs; Z79.899 Other long term (current) drug therapy
CPT/HCPCS: 36415; 80048; 80053; 80061; 81001; 82948; 83036; 83605; 85025; 85055; 85652; 86140; 87040; 87637; 87641; 93971; 96365; 96372; 96375; 99285; A9270; G0378; J0690; J1650; J3370; J7030; J7120

== ENCOUNTER 2023-12-20 01:56 | Inpatient (IN) | payer BC, SELFPAY ==
[2023-12-20] VITALS (13 sets, daily range): BP systolic 129–165; BP diastolic 51–88; PULSE 100–136; RESP 15–22; TEMP 36.3–37.8; O2SAT 95–98; BMI 72.7
--- NOTE | ~2023-12-20 | US_ITS ---
EXAMINATION: US venous doppler LE RT DATE: 12/21/2023 11:18 INDICATION: Lower limb swelling TECHNIQUE: Grayscale ultrasound images without and with compression and Doppler ultrasound images of the right lower extremity veins were obtained. COMPARISON: None. FINDINGS: Evaluation is significantly limited by body habitus both with respect to visualization of the vessels as well as the ability to obtain adequate compression. Appropriate directional flow and venous wavef orms identified at the right superficial femoral vein but which did not appear appreciably compressib le. Additional venous flow on color Doppler seen in the region of the right popliteal vein and at the right posterior tibial and peroneal veins but with the veins at the clavicular visualized on graysca le imaging to assess for compressibility. Remaining deep veins of the right lower limb were unable to be visualized. IMPRESSION: 1. Very limited study due to patient body habitus which demonstrates vascular flow on color Doppler within but no definitive compressibility of the right superficial femoral vein which is suspicious fo r venous thrombosis. Reviewed, dictated and finalized at location A. IMPRESSION: 1. Very limited study due to patient body habitus which demonstrates vascular flow on color Doppler within but no definitive compressibility of the right sup erficial femoral vein which is suspicious for venous thrombosis.
[2023-12-20] MEDS: ACETAMINOPHEN 500 MG TABLET 1000 MG PO (03:21)
[2023-12-20 03:49] LABS: Basophils Absolute Auto 0.1 K/mm3 (0.0-0.1); Basophils Percent Auto 0.3 % (0.2-1.2); Eosinophils Absolute Auto 0.2 K/mm3 (0-0.3); Eosinophils Percent Auto 1.4 % (0-4.4); Hemoglobin 12.5 g/dL (14.0-18.0); Immature Granulocyte Absolute 0.07 K/mm3 (0.00-0.031); Immature Granulocyte Percent A 0.4 % (0-0.5); Lymphocytes Absolute Auto 0.98 K/mm3 (0.9-3.2); Lymphocytes Percent Auto 6.1 % (18.3-44.2); Mean Corpuscular HGB Conc 32.9 g/dl (32-36); Mean Corpuscular Hemoglobin 27.9 pg (26-34); Mean Corpuscular Volume 84.8 fl (80-100); Mean Platelet Volume 10.2 fl (7.4-10.4); Monocytes Absolute Auto 0.7 K/mm3 (0.1-0.6); Monocytes Percent Auto 4.6 % (2.6-8.5); Neutrophils Percent Auto 87.2 % (45.5-73.1); Platelet Count Result 246 k/mm3 (150-375); Red Blood Count 4.48 M/mm3 (4.6-6.20); Red Cell Distribution Width 15.2 % (11.5-14.5); White Blood Count 16.1 K/mm3 (4.5-10.0)
[2023-12-20 03:58] LABS: Prothrombin Time 14.2 Seconds (11.1-14.7)
[2023-12-20 03:59] LABS: Lactic Acid Reflex 2.5 mmol/L (0.7-2.0); Partial Thromboplastin Time 26.2 Seconds (22.3-36.8)
[2023-12-20 04:01] LABS: Alanine Aminotransferase 22 U/L (6-50); Albumin Level 4.1 g/dL (3.5-5.1); Alkaline Phosphatase 70 U/L (38-126); Anion Gap 12 mmol/L (4-12); Aspartate Amino Transferase 22 U/L (17-59); Bilirubin,Total 0.8 mg/dL (0.2-1.3); Blood Urea Nitrogen 18 mg/dL (9-20); CRP 1.8 mg/dL (<1.0); Calcium 9.1 mg/dL (8.4-10.2); Carbon Dioxide 20 mmol/L (22-30); Chloride 105 mmol/L (98-107); Estimated CRCL calculation 183 ml/min; Estimated Glomerular Filt Rate > 60; Glucose 153 mg/dL (65-110); Potassium 4.4 mmol/L (3.4-5.0); Sodium 137 mmol/L (137-145)
[2023-12-20] MEDS: VANCOMYCIN 1,500 MG/NS 500 ML 1,500 MG/500 ML BAG 250 MG IVPB ×2 (04:14→16:55)
--- NOTE | 2023-12-20 04:39 | ED.FEVER ---
HPI - Fever General Chief Complaint: Fever Stated Complaint: fever, heart racing, poss cellulitis to R leg Time Seen by Provider: 12/20/23 02:25 History of Present Illness HPI Narrative: Patient presenting due to concern for cellulitis as not improved with outpatient antibiotics, had been seen here 2 weeks ago for the same thing and admitted at that time but was doing better, has been taking antibiotics without improvement. Right lower leg infection. Related Data Home Medications Medication Instructions Recorded Confirmed fexofenadine 180 mg tablet 180 mg PO DAILY PRN Allergy 09/17/19 12/07/23 (Isa Allergy) Symptoms multivitamin (Multiple Vitamins 1 tablet PO DAILY 09/17/19 12/07/23 tablet) cholecalciferol (vitamin D3) 125 10,000 unit PO DAILY 12/19/20 12/07/23 mcg (5,000 unit) capsule magnesium 250 mg tablet 250 mg PO Q12H 07/17/21 12/07/23 mecobalamin (vitamin B12) 1,000 1,000 mcg PO HS 11/19/22 12/07/23 mcg chewable tablet Adult Probiotic 1 gummy PO DAILY 12/07/23 12/07/23 Metamucil 1 gummy PO DAILY 12/07/23 12/07/23 montelukast 10 mg tablet 10 mg PO HS 12/07/23 12/07/23 semaglutide 0.25 mg or 0.5 mg (2 1 mg subcut WEEKLY 12/07/23 12/07/23 mg/3 mL) subcutaneous pen injector (Ozempic) Allergies Allergy/AdvReac Type Severity Reaction Status Date / Time peanut Allergy Severe Hives Verified 12/20/23 01:57 egg Allergy Mild Hives Verified 12/20/23 01:57 lisinopril Allergy Mild Unknown Verified 12/20/23 01:57 Review of Systems Review of Systems: CONST: fever. HEENT: No sore throat C/V: No chest pain RESP: No cough GI: No nausea vomiting : No dysuria. M/S: Redness and swelling to right lower extremity SKIN: Redness and swelling to right lower extremity NEURO: [No headache or focal numbness or weakness] PSYCH: [No depression] FOR[facility]LY [facility] Past Medical History Medical History (Updated 12/20/23 @ 05:20 by Carisa Thomas MD) Anxiety and depression Asthma Body mass index (BMI) greater than 70 in adult (08/08/15) COVID-19 Essential (primary) hypertension Hyperlipidemia Lymphedema of both lower extremities Morbid (severe) obesity due to excess calories BMI greater than 70 MAINOR (obstructive sleep apnea) Does not use CPAP at home Type 2 diabetes mellitus Vitamin D deficiency Surgical History Surgical History (Updated 12/07/23 @ 02:22 by Sabine Hernández APRN) History of colonoscopy with polypectomy Approximately 2019 History of tonsillectomy Family History Family History Father Hypertension Diabetes mellitus Anemia History of heart surgery Colon cancer, Onset Age: 50 Mother Autoimmune disorder Grandparent Skin cancer Grandparent Cancer Grandparent Glaucoma Sibling Obesity Social History Social History Social History: The patient is single and lives with his parents. 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 He drinks 2-3 shots of Tequila every week or 2. Code status: Full code Surrogate decision maker: Shira Justo (mother) Smoking status: Never smoker Second hand tobacco smoke exposure: No Alcohol intake: current Drinks per week: 1 Substance use: never Do You Feel Safe in your Home?: Yes Lack of Transportation: No Lack of Food: Never True Current Housing: I Have Housing Concerned About Future Housing: No Difficulty Paying Gas/Electric Bills: No Difficulty Paying for Meds: No Currently Unemployed: No Education: High School Diploma/GED Difficulty w/ Childcare or Family Care: No Spiritual care concerns: No Exam Narrative: EXAMINATION OF ORGAN SYSTEMS/BODY AREAS: Constitutional: Vital signs per nursing GENERAL:[No acute distress, non-toxic appearing.] HEAD: Normal with no signs of head trauma. EYES: EOMI, conjunctiva normal ENT: Hearing grossly intact LUNGS: Nonlabored breathing. HEART: Tachycardic ABD: [
[2023-12-20] MEDS: LACTATED RINGERS 1,000 ML 999 ML IV CONT ×2 (05:30→06:26)
[2023-12-20 06:47] LABS: Reflex Lactic Acid Yes or No Add Lactic
--- NOTE | 2023-12-20 06:52 | ADMGEN ---
This patient, Mike Kemp, was admitted to 2 Medical Room 259-01. Patient/family oriented to hospital policies and general routines including ID bracelet, bed and alarms, visiting hours, pain management, procedures, bathroom and other care routines, personal items, smoking policy, room service/diet, and visiting hours. Information on how to activate the Rapid Response Team has been discussed. Patient/Family are encouraged to report perceived risks to care and to ask questions if they do not understand what they are told or what they should do.
[2023-12-20 08:11] LABS: Lactic Acid 2.2 mmol/L (0.7-2.0)
--- NOTE | 2023-12-20 14:46 | PM.IMHP ---
H&P: HPI History of Present Illness Date/Time: 12/20/23 14:46 Chief Complaint: Cellulitis Narrative: 28-year-old male with past medical history anxiety and depression, hypertension, lymphedema bilateral lower extremities, morbid obesity, MAINOR does not use home CPAP, hyperlipidemia, [id number] diabetes mellitus, vitamin-D deficiency presents with worsening cellulitis of the right lower extremity below the knee. He was discharged on 12/07/2023 home on Keflex after receiving Ancef and and vancomycin. Leg was better but then reports that became worse and was sure was cellulitis again. Cellulitis right lower extremity complicated by chronic bilateral lower extremity lymphedema morbid obesity -failed outpatient antibiotics with Keflex after being discharged home on 12/06. Asked nurse [place]. Repeat blood cultures pending. Started on vancomycin will add cefepime as well. Check lower extremity Doppler to rule out an abscess or clot which has developed since last admission Leukocytosis -continue to monitor for resolution Type 2 diabetes mellitus [id number] -low-dose sliding scale Hypertension -resume home dose losartan Lovenox. Full code. Review of Systems Review of Systems: All systems reviewed & are unremarkable except as noted in HPI and below (Subjective) PMFSH Past Medical History Medical History (Updated 12/20/23 @ 05:20 by Carisa Thomas MD) Anxiety and depression Asthma Body mass index (BMI) greater than 70 in adult (08/08/15) COVID-19 Essential (primary) hypertension Hyperlipidemia Lymphedema of both lower extremities Morbid (severe) obesity due to excess calories BMI greater than 70 MAINOR (obstructive sleep apnea) Does not use CPAP at home Type 2 diabetes mellitus Vitamin D deficiency Surgical History Surgical History (Updated 12/07/23 @ 02:22 by Sabine Hernández APRN) History of colonoscopy with polypectomy Approximately 2019 History of tonsillectomy Family History Family History Father Hypertension Diabetes mellitus Anemia History of heart surgery Colon cancer, Onset Age: 50 Mother Autoimmune disorder Grandparent Skin cancer Grandparent Cancer Grandparent Glaucoma Sibling Obesity Social History Social History Social History: The patient is single and lives with his parents. 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 He drinks 2-3 shots of Tequila every week or 2. Code status: Full code Surrogate decision maker: Shira Kemp (mother) Smoking status: Never smoker Second hand tobacco smoke exposure: No Alcohol intake: current Drinks per week: 1 Substance use: never Do You Feel Safe in your Home?: Yes Lack of Transportation: No Lack of Food: Never True Current Housing: I Have Housing Concerned About Future Housing: No Difficulty Paying Gas/Electric Bills: No Difficulty Paying for Meds: No Currently Unemployed: No Education: Associate Degree Difficulty w/ Childcare or Family Care: No Spiritual care concerns: No Meds Home Medications and Allergies Home Medications Medication Instructions Recorded Confirmed Type multivitamin (Multiple Vitamins 1 tablet PO DAILY 09/17/19 12/20/23 History tablet) cholecalciferol (vitamin D3) 125 10,000 unit PO DAILY 12/19/20 12/20/23 History mcg (5,000 unit) capsule magnesium 250 mg tablet 250 mg PO Q12H 07/17/21 12/20/23 History albuterol sulfate 90 mcg/actuation 2 puff inhalation Q4-6H PRN 11/19/22 12/20/23 Rx aerosol inhaler (ProAir HFA) shortness of breath or wheezing #8.5 grams mecobalamin (vitamin B12) 1,000 1,000 mcg PO HS 11/19/22 12/20/23 History mcg chewable tablet blood sugar diagnostic (Accu-Chek #100 ea 04/08/23 12/07/23 Rx Guide test strips) blood-glucose meter (Accu-Chek #1 ea 04/08/23 12/07/23 Rx Guide Glucose Meter) at
[2023-12-20] MEDS: CEFEPIME 2 GM/NS 50 ML 2 GM/50 ML BAG IVPB ×2 (16:02→22:23)
[2023-12-20 17:32] LABS: Glucose Point of Care 112 mg/dl (65-105)
[2023-12-20] MEDS: AZELASTINE HCL NASAL 0.1% 137 MCG/SPR 30 ML BTL 1 SPRAY NASAL (18:00)
[2023-12-20] MEDS: CYANOCOBALAMIN 1,000 MCG TABLET 1000 MCG PO (20:09)
[2023-12-20] MEDS: MONTELUKAST SODIUM 10 MG TABLET PO (20:09)
[2023-12-20 21:11] LABS: Glucose Point of Care 124 mg/dl (65-105)
[2023-12-21] VITALS (12 sets, daily range): BP systolic 131–154; BP diastolic 78–88; PULSE 81–102; RESP 18; TEMP 36.4–36.6; O2SAT 96–98
[2023-12-21] MEDS: VANCOMYCIN 1,500 MG/NS 500 ML 1,500 MG/500 ML BAG 250 MG IVPB ×2 (04:16→16:23)
[2023-12-21 05:32] LABS: Basophils Absolute Auto 0.1 K/mm3 (0.0-0.1); Basophils Percent Auto 0.7 % (0.2-1.2); Eosinophils Absolute Auto 0.2 K/mm3 (0-0.3); Eosinophils Percent Auto 2.7 % (0-4.4); Hematocrit 44.1 % (42.0-52.0); Hemoglobin 12.8 g/dL (14.0-18.0); Immature Granulocyte Absolute 0.03 K/mm3 (0.00-0.031); Immature Granulocyte Percent A 0.4 % (0-0.5); Lymphocytes Absolute Auto 1.77 K/mm3 (0.9-3.2); Lymphocytes Percent Auto 25.5 % (18.3-44.2); Mean Corpuscular Hemoglobin 27.4 pg (26-34); Mean Corpuscular Volume 94.4 fl (80-100); Monocytes Absolute Auto 0.8 K/mm3 (0.1-0.6); Monocytes Percent Auto 10.8 % (2.6-8.5); Neutrophils Absolute Auto 4.2 K/mm3 (1.3-6.7); Neutrophils Percent Auto 59.9 % (45.5-73.1); Platelet Count Result 153 k/mm3 (150-375); Red Blood Count 4.67 M/mm3 (4.6-6.20); Red Cell Distribution Width 15.9 % (11.5-14.5)
[2023-12-21] MEDS: CEFEPIME 2 GM/NS 50 ML 2 GM/50 ML BAG IVPB ×3 (06:38→21:01)
[2023-12-21 08:20] LABS: Glucose Point of Care 121 mg/dl (65-105)
--- NOTE | 2023-12-21 08:22 | PM.IMPN ---
Progress Note: A&P Assessment and Plan (1) Cellulitis: Code(s): L03.90 - Cellulitis, unspecified Status: Acute Plan 28-year-old male with past medical history anxiety and depression, hypertension, lymphedema bilateral lower extremities, morbid obesity, MAINOR does not use home CPAP, hyperlipidemia, [id number]-pjpbssuoi diabetes mellitus, vitamin-D deficiency presents with worsening cellulitis of the right lower extremity below the knee. He was discharged on 12/07/2023 home on Keflex after receiving Ancef and and vancomycin. Leg was better but then reports that became worse and was sure was cellulitis again. Cellulitis right lower extremity complicated by chronic bilateral lower extremity lymphedema morbid obesity -failed outpatient antibiotics with Keflex after being discharged home on 12/06. Asked nurse [place]. Repeat blood cultures pending. Started on vancomycin will add cefepime as well. Check lower extremity Doppler to rule out an abscess or clot which has developed since last admission 12/20: Blood culture no bacterial growth so far sepsis Patient had leukocytosis, tachycardia tachypnea, lactic acidosis POA, meeting criteria of sepsis resulting from cellulitis blood culture negative of bacteria continue vancomycin cefepime -continue to monitor for resolution Type 2 diabetes mellitus [id number] -low-dose sliding scale Hypertension -resume home dose losartan Lovenox. Full code. Subjective Date/time seen: 12/21/23 08:22 Interval history: I saw exam patient today. Patient is afebrile overnight, blood pressure stable, no O2 desaturation, patient is on room air. Patient feels right leg pain is is improving, denies fever, chills, headache pain, nausea vomiting Exam Narrative: GENERAL: Pleasant, in no acute distress. Well-nourished. - EYES: EOMI. Anicteric. - HENT: Moist mucous membranes. - LUNGS: Clear to auscultation bilaterally, no wheezing, rhonchi, or rales. - CARDIOVASCULAR: Regular rate and rhythm. No murmur. No JVD. - ABDOMEN: Soft, non-tender and non-distended. No palpable masses. - EXTREMITIES: 2+ right lower limb edema. Peripheral pulses 2+. Non-tender. - NEUROLOGIC: No focal neurological deficits. CN II-XII grossly intact. - PSYCHIATRIC: Awake, Alert and oriented x 3. Appropriate mood and affect. - SKIN: tender, swelling, redness of right lower extremity - LYMPH: No cervical lymphadenopathy. Objective Data Vital Signs Vital Signs: Vital Signs - 24 hr 12/20/23 08:30 12/20/23 11:26 12/20/23 12:22 Temperature 97.7 F 99.3 F Pulse Rate 104 H 112 H Respiratory Rate 16 20 Blood Pressure 141/62 H 144/65 H Pulse Oximetry 95 97 Oxygen Delivery Room Air 12/20/23 13:52 12/20/23 12:00 12/20/23 16:00 Temperature 99.2 F Pulse Rate 117 H 131 H 113 H Respiratory Rate 18 Blood Pressure 136/58 L Pulse Oximetry 98 Oxygen Delivery 12/20/23 21:07 12/20/23 20:00 12/20/23 20:00 Temperature 98.8 F Pulse Rate 100 100 104 H Respiratory Rate 18 18 Blood Pressure 150/51 H Pulse Oximetry 98 98 Oxygen Delivery Room Air 12/21/23 00:00 12/21/23 04:00 12/21/23 05:29 Temperature 97.6 F Pulse Rate 102 H 87 81 Respiratory Rate 18 Blood Pressure 131/78 Pulse Oximetry 97 Oxygen Delivery 12/21/23 08:10 Temperature Pulse Rate 83 Respiratory Rate Blood Pressure Pulse Oximetry 96 Oxygen Delivery Room Air Intake/Output Intake/Output: Intake & Output 12/18/23 12/19/23 12/20/23 12/21/23 23:59 23:59 23:59 23:59 Intake Total 4460 400 Balance 4460 400 Meds/Results Medications: Active Medications Generic Name Dose Route Start Last Admin Trade Name Freq PRN Reason Stop Dose Admin Albuterol 2 puff 12/20/23 14:48 Albuterol Sulfate (*Sp) Aerosol 1 Puff INHALATION Q4-6H PRN shortness of breath or wheezing Atorvastatin Calcium 20 mg 12/21/23 09:00 Atorvastatin 20 Mg Table
[2023-12-21 08:47] LABS: Anion Gap 12 mmol/L (4-12); Blood Urea Nitrogen 11 mg/dL (9-20); Carbon Dioxide 14 mmol/L (22-30); Chloride 113 mmol/L (98-107); Estimated CRCL calculation 200 ml/min; Estimated Glomerular Filt Rate > 60; Glucose 112 mg/dL (65-110); Magnesium 2.3 mg/dL (1.6-2.3); Potassium 4.6 mmol/L (3.4-5.0); Sodium 139 mmol/L (137-145)
[2023-12-21] MEDS: LOSARTAN POTASSIUM 100 MG TABLET PO (08:58)
[2023-12-21] MEDS: CHOLECALCIFEROL 1,000 UNITS TABLET 5000 UNITS PO (08:58)
[2023-12-21] MEDS: AZELASTINE HCL NASAL 0.1% 137 MCG/SPR 30 ML BTL 1 SPRAY NASAL ×2 (08:59→16:24)
[2023-12-21] MEDS: ATORVASTATIN 20 MG TABLET PO (08:59)
[2023-12-21] MEDS: MULTIVITAMINS THERAPEUTIC TAB (*BKC) 1 TABLET PO (08:59)
[2023-12-21] MEDS: ENOXAPARIN 40 MG/0.4 ML SYRINGE SUB-Q (08:59)
[2023-12-21 12:13] LABS: Glucose Point of Care 111 mg/dl (65-105)
[2023-12-21] MEDS: ACETAMINOPHEN 325 MG TABLET 650 MG PO ×2 (13:01→21:02)
[2023-12-21 15:54] LABS: Vancomycin Trough 8.4 ug/mL (10.0-20.0)
[2023-12-21 17:24] LABS: Glucose Point of Care 138 mg/dl (65-105)
[2023-12-21 20:59] LABS: Glucose Point of Care 101 mg/dl (65-105)
[2023-12-21] MEDS: CYANOCOBALAMIN 1,000 MCG TABLET 1000 MCG PO (21:02)
[2023-12-21] MEDS: MONTELUKAST SODIUM 10 MG TABLET PO (21:02)
[2023-12-22] VITALS (11 sets, daily range): BP systolic 115–147; BP diastolic 62–86; PULSE 73–90; RESP 17–18; TEMP 36.2–36.6; O2SAT 94–99
[2023-12-22] MEDS: VANCOMYCIN 1,500 MG/NS 500 ML 1,500 MG/500 ML BAG 250 MG IVPB ×3 (00:59→20:15)
[2023-12-22] MEDS: CEFEPIME 2 GM/NS 50 ML 2 GM/50 ML BAG IVPB ×3 (05:10→22:12)
[2023-12-22 05:56] LABS: Estimated CRCL calculation 200 ml/min; Estimated Glomerular Filt Rate > 60
[2023-12-22 08:20] LABS: Glucose Point of Care 116 mg/dl (65-105)
--- NOTE | 2023-12-22 08:45 | PM.IMPN ---
Progress Note: A&P Assessment and Plan (1) Cellulitis: Code(s): L03.90 - Cellulitis, unspecified Status: Acute Plan 28-year-old male with past medical history anxiety and depression, hypertension, lymphedema bilateral lower extremities, morbid obesity, MAINOR does not use home CPAP, hyperlipidemia, [id number]-vlrbcyqij diabetes mellitus, vitamin-D deficiency presents with worsening cellulitis of the right lower extremity below the knee. He was discharged on 12/07/2023 home on Keflex after receiving Ancef and and vancomycin. Leg was better but then reports that became worse and was sure was cellulitis again. Cellulitis right lower extremity complicated by chronic bilateral lower extremity lymphedema morbid obesity -failed outpatient antibiotics with Keflex after being discharged home on 12/06. [place] nurse [place] [facility]. Repeat blood cultures pending. Started on vancomycin will add cefepime as well. Check lower extremity Doppler to rule out an abscess or clot which has developed since last admission 12/20: Blood culture no bacterial growth so far A per 18, cellulitis improving, continue IV antibiotics today, sepsis Patient had leukocytosis, tachycardia tachypnea, lactic acidosis POA, meeting criteria of sepsis resulting from cellulitis blood culture negative of bacteria continue vancomycin cefepime -continue to monitor for resolution Type 2 diabetes mellitus aco-[id number]-[id number] -low-dose sliding scale Hypertension -resume home dose losartan Lovenox. Full code. Subjective Date/time seen: 12/22/23 08:45 Interval history: patient is afebrile, blood pressure stable, no O2 desaturation on room air over the night. Patient's feels better today, pain and swelling of right lower extremity is improving. Patient denies chest pain abdomen pain, nausea vomiting diarrhea dysuria headache focal weakness. Exam Narrative: GENERAL: Pleasant, in no acute distress. Well-nourished. - EYES: EOMI. Anicteric. - HENT: Moist mucous membranes. - LUNGS: Clear to auscultation bilaterally, no wheezing, rhonchi, or rales. - CARDIOVASCULAR: Regular rate and rhythm. No murmur. No JVD. - ABDOMEN: Soft, non-tender and non-distended. No palpable masses. - EXTREMITIES: 2+ right lower limb edema. Peripheral pulses 2+. Non-tender. - NEUROLOGIC: No focal neurological deficits. CN II-XII grossly intact. - PSYCHIATRIC: Awake, Alert and oriented x 3. Appropriate mood and affect. - SKIN: tender, swelling, redness of right lower extremity, cellulitis is improving - LYMPH: No cervical lymphadenopathy. Objective Data Vital Signs Vital Signs: Vital Signs - 24 hr 12/21/23 15:39 12/21/23 12:00 12/21/23 16:00 Temperature 97.8 F Pulse Rate 89 90 95 Respiratory Rate 18 Blood Pressure 150/79 H Pulse Oximetry 98 Oxygen Delivery 12/21/23 19:33 12/21/23 20:00 12/21/23 22:42 Temperature 97.8 F Pulse Rate 95 91 98 Respiratory Rate 18 18 Blood Pressure 154/88 H Pulse Oximetry 98 97 Oxygen Delivery Room Air 12/21/23 21:01 12/22/23 00:00 12/22/23 03:59 Temperature 97.9 F Pulse Rate 86 83 Respiratory Rate 18 Blood Pressure 130/62 Pulse Oximetry 97 98 Oxygen Delivery Room Air 12/22/23 04:00 12/22/23 07:56 Temperature Pulse Rate 83 73 Respiratory Rate Blood Pressure Pulse Oximetry 94 Oxygen Delivery Room Air Intake/Output Intake/Output: Intake & Output 12/19/23 12/20/23 12/21/23 12/22/23 23:59 23:59 23:59 23:59 Intake Total 4460 2150 400 Balance 4460 2150 400 Meds/Results Medications: Active Medications Generic Name Dose Route Start Last Admin Trade Name Freq PRN Reason Stop Dose Admin Acetaminophen 650 mg 12/21/23 12:50 12/21/23 21:02 Acetaminophen 325 Mg Tablet PO 650 mg Q6H PRN Administration Mild Pain (1-3) or Fever Albuterol 2 puff 12/20/23 14:48 Albuterol Sulfate (*Sp) Aerosol 1 Puff INHALATION Q4-6H PRN
[2023-12-22] MEDS: ACETAMINOPHEN 325 MG TABLET 650 MG PO ×2 (09:21→17:23)
[2023-12-22] MEDS: ENOXAPARIN 40 MG/0.4 ML SYRINGE SUB-Q (09:21)
[2023-12-22] MEDS: ATORVASTATIN 20 MG TABLET PO (09:23)
[2023-12-22] MEDS: MULTIVITAMINS THERAPEUTIC TAB (*BKC) 1 TABLET PO (09:23)
[2023-12-22] MEDS: AZELASTINE HCL NASAL 0.1% 137 MCG/SPR 30 ML BTL 1 SPRAY NASAL ×2 (09:24→17:23)
[2023-12-22] MEDS: LOSARTAN POTASSIUM 100 MG TABLET PO (09:24)
[2023-12-22] MEDS: CHOLECALCIFEROL 1,000 UNITS TABLET 5000 UNITS PO (09:24)
[2023-12-22 11:44] LABS: Glucose Point of Care 112 mg/dl (65-105)
--- NOTE | 2023-12-22 13:46 | PC.NURSE ---
On 12/22/23, the student, [Christiane Villegas], provided care and completed [facility] documentation on this patient. I have reviewed the student's documentation and agree with the findings.
[2023-12-22 17:06] LABS: Glucose Point of Care 118 mg/dl (65-105)
[2023-12-22 17:48] LABS: Vancomycin Trough 12.9 ug/mL (10.0-20.0)
[2023-12-22 20:08] LABS: Glucose Point of Care 100 mg/dl (65-105)
[2023-12-22] MEDS: CYANOCOBALAMIN 1,000 MCG TABLET 1000 MCG PO (20:16)
[2023-12-22] MEDS: MONTELUKAST SODIUM 10 MG TABLET PO (20:16)
[2023-12-23] VITALS: PULSE 79
[2023-12-23] MEDS: VANCOMYCIN 1,500 MG/NS 500 ML 1,500 MG/500 ML BAG 250 MG IVPB (03:50)
[2023-12-23 04:00] VITALS: PULSE 87
[2023-12-23 05:26] VITALS: BP 153/95; PULSE 77; RESP 17; TEMP 36.4; O2SAT 100
[2023-12-23] MEDS: CEFEPIME 2 GM/NS 50 ML 2 GM/50 ML BAG IVPB (06:17)
[2023-12-23 07:03] LABS: Estimated CRCL calculation 226 ml/min; Estimated Glomerular Filt Rate > 60
[2023-12-23 08:00] VITALS: PULSE 85
--- NOTE | 2023-12-23 08:02 | PM.IMPN ---
Progress Note: A&P Assessment and Plan (1) Cellulitis: Code(s): L03.90 - Cellulitis, unspecified Status: Acute Plan 28-year-old male with past medical history anxiety and depression, hypertension, lymphedema bilateral lower extremities, morbid obesity, MAINOR does not use home CPAP, hyperlipidemia, gxy-uoohuzd-jkubkyetr diabetes mellitus, vitamin-D deficiency presents with worsening cellulitis of the right lower extremity below the knee. He was discharged on 12/07/2023 home on Keflex after receiving Ancef and and vancomycin. Leg was better but then reports that became worse and was sure was cellulitis again. Cellulitis right lower extremity complicated by chronic bilateral lower extremity lymphedema morbid obesity -failed outpatient antibiotics with Keflex after being discharged home on 12/06. Asked nurse to [place]. Repeat blood cultures pending. Started on vancomycin will add cefepime as well. Check lower extremity Doppler to rule out an abscess or clot which has developed since last admission 12/20: Blood culture no bacterial growth so far A per , cellulitis improving, continue IV antibiotics today, 12/22: change to oral abx today, recommend patient to see primary care doctor in 1 week, change antibiotics per primary care doctor sepsis Patient had leukocytosis, tachycardia tachypnea, lactic acidosis POA, meeting criteria of sepsis resulting from cellulitis blood culture negative of bacteria received vancomycin cefepime sepsis has resolved change or embedded today Type 2 diabetes mellitus oeb-sjleema-plyppcixc -low-dose sliding scale resume home medication on discharge Hypertension -resume home dose losartan Lovenox. Full code. Subjective Date/time seen: 12/23/23 08:02 Interval history: patient is afebrile, blood pressure stable, no O2 desaturation on room air over the night. right leg cellulitis has improved significantly. Patient denies chest pain abdomen pain, nausea vomiting diarrhea dysuria headache focal weakness. Exam Narrative: GENERAL: Pleasant, in no acute distress. Well-nourished. - EYES: EOMI. Anicteric. - HENT: Moist mucous membranes. - LUNGS: Clear to auscultation bilaterally, no wheezing, rhonchi, or rales. - CARDIOVASCULAR: Regular rate and rhythm. No murmur. No JVD. - ABDOMEN: Soft, non-tender and non-distended. No palpable masses. - EXTREMITIES: 2+ right lower limb edema. Peripheral pulses 2+. Non-tender. - NEUROLOGIC: No focal neurological deficits. CN II-XII grossly intact. - PSYCHIATRIC: Awake, Alert and oriented x 3. Appropriate mood and affect. - SKIN: tender, and redness of right lower extremity has resolved, cellulitis is improving - LYMPH: No cervical lymphadenopathy. Objective Data Vital Signs Vital Signs: Vital Signs - 24 hr 12/22/23 10:18 12/22/23 09:27 12/22/23 14:34 Temperature 97.1 F L Pulse Rate 85 82 Respiratory Rate 17 Blood Pressure 147/86 H 115/62 Pulse Oximetry 96 Oxygen Delivery Room Air 12/22/23 12:00 12/22/23 16:00 12/22/23 20:01 Temperature 97.8 F Pulse Rate 80 90 81 Respiratory Rate 18 Blood Pressure 137/81 Pulse Oximetry 99 Oxygen Delivery 12/22/23 20:00 12/22/23 20:00 12/23/23 00:00 Temperature Pulse Rate 83 79 Respiratory Rate Blood Pressure Pulse Oximetry Oxygen Delivery Room Air 12/23/23 04:00 12/23/23 05:26 Temperature 97.5 F L Pulse Rate 87 77 Respiratory Rate 17 Blood Pressure 153/95 H Pulse Oximetry 100 Oxygen Delivery Intake/Output Intake/Output: Intake & Output 12/20/23 12/21/23 12/22/23 12/23/23 23:59 23:59 23:59 23:59 Intake Total 4460 2150 2940 550 Balance 4460 2150 2940 550 Meds/Results Medications: Active Medications Generic Name Dose Route Start Last Admin Trade Name Freq PRN Reason Stop Dose Admin Acetaminophen 650 mg 12/21/23 12:50 12/22/23 17:23 Acetaminophen 325 Mg Tablet PO 650 mg Q6H PRN
--- NOTE | 2023-12-23 08:03 | PM.DS ---
DS: Admitting Diagnosis Discharge Date 12/23/23 Admitting Diagnosis (1) Cellulitis: ?Code(s): L03.90 - Cellulitis, unspecified ?Status:?Acute DS: Discharge Diagnosis Discharge Diagnosis (1) Cellulitis: Code(s): L03.90 - Cellulitis, unspecified Status: Acute DS: Summary Hospital Course Hospital Course: 28-year-old male with past medical history anxiety and depression, hypertension, lymphedema bilateral lower extremities, morbid obesity, MAINOR does not use home CPAP, hyperlipidemia, yml-yadswoe-losilmckz diabetes mellitus, vitamin-D deficiency presents with worsening cellulitis of the right lower extremity below the knee. He was discharged on 12/07/2023 home on Keflex after receiving Ancef and and vancomycin. Leg was better but then reports that became worse and was sure was cellulitis again. Cellulitis right lower extremity complicated by chronic bilateral lower extremity lymphedema morbid obesity -failed outpatient antibiotics with Keflex after being discharged home on 12/06. Asked nurse to [place]. Repeat blood cultures pending. Started on vancomycin will add cefepime as well. Check lower extremity Doppler to rule out an abscess or clot which has developed since last admission 12/20: Blood culture no bacterial growth so far A per 18, cellulitis improving, continue IV antibiotics today, 12/22: change to oral abx today, recommend patient to see primary care doctor in 1 week, change antibiotics per primary care doctor sepsis Patient had leukocytosis, tachycardia tachypnea, lactic acidosis POA, meeting criteria of sepsis resulting from cellulitis blood culture negative of bacteria received vancomycin cefepime sepsis has resolved change or embedded today Type 2 diabetes mellitus meh-skepjub-hghskopzi -low-dose sliding scale resume home medication on discharge Hypertension -resume home dose losartan Lovenox. Full code. Time Spent with Patient Time attestation: Total time spent providing and/or coordinating discharge services: Exam Narrative: GENERAL: Pleasant, in no acute distress. Well-nourished. - EYES: EOMI. Anicteric. - HENT: Moist mucous membranes. - LUNGS: Clear to auscultation bilaterally, no wheezing, rhonchi, or rales. - CARDIOVASCULAR: Regular rate and rhythm. No murmur. No JVD. - ABDOMEN: Soft, non-tender and non-distended. No palpable masses. - EXTREMITIES: 2+ right lower limb edema. Peripheral pulses 2+. Non-tender. - NEUROLOGIC: No focal neurological deficits. CN II-XII grossly intact. - PSYCHIATRIC: Awake, Alert and oriented x 3. Appropriate mood and affect. - SKIN: tender, and redness of right lower extremity has resolved, cellulitis is improving - LYMPH: No cervical lymphadenopathy. DS: Data Data Completed and Pending Labs on day of discharge: Labs from last 24 hours 12/23/23 12/22/23 12/22/23 06:33 20:06 17:03 Creatinine 0.70 Estim Creat Clear Calc 226 Estimated GFR > 60 POC Capillary Glucose 100 118 H Vancomycin Trough 12/22/23 12/22/23 12/22/23 16:05 11:42 08:05 Creatinine Estim Creat Clear Calc Estimated GFR POC Capillary Glucose 112 H 116 H Vancomycin Trough 12.9 Preliminary micro results at discharge 12/20/23 03:40 Blood Culture - Preliminary Blood 12/20/23 03:57 Blood Culture - Preliminary Blood Discharge Plan Discharge Attending physician on discharge: Olivier Lara Discharging Clinician: Olivier Lara Anticipated Discharge Date/Time: 12/23/23 11:04 Patient Disposition: Home, Self-Care Activity: as tolerated Diet: as tolerated and heart healthy Patient Instructions: Antibiotic Form Stand Alone Forms: General Discharge Information Follow-up/Referrals: Sulaiman Guerra PA-C [Primary Care Provider] - (see PCP in one week ) Discharge Medications: New doxycycline hyclate 100 mg tablet 100 mg PO DAILY Qty: 12 0RF amoxicillin-p
[2023-12-23 08:04] LABS: Glucose Point of Care 117 mg/dl (65-105)
[2023-12-23 08:29] LABS: Hematocrit 39.7 % (42.0-52.0); Hemoglobin 12.5 g/dL (14.0-18.0); Mean Corpuscular HGB Conc 31.5 g/dl (32-36); Mean Corpuscular Hemoglobin 27.7 pg (26-34); Mean Corpuscular Volume 87.8 fl (80-100); Mean Platelet Volume 10.4 fl (7.4-10.4); Platelet Count Result 230 k/mm3 (150-375); Red Blood Count 4.52 M/mm3 (4.6-6.20); Red Cell Distribution Width 15.1 % (11.5-14.5); White Blood Count 6.2 K/mm3 (4.5-10.0)
[2023-12-23 08:41] LABS: Anion Gap 8 mmol/L (4-12); Blood Urea Nitrogen 13 mg/dL (9-20); Calcium 9.1 mg/dL (8.4-10.2); Carbon Dioxide 22 mmol/L (22-30); Chloride 110 mmol/L (98-107); Estimated CRCL calculation 200 ml/min; Estimated Glomerular Filt Rate > 60; Glucose 123 mg/dL (65-110); Potassium 4.5 mmol/L (3.4-5.0); Sodium 140 mmol/L (137-145)
[2023-12-23] MEDS: MULTIVITAMINS THERAPEUTIC TAB (*BKC) 1 TABLET PO (09:31)
[2023-12-23] MEDS: CHOLECALCIFEROL 1,000 UNITS TABLET 5000 UNITS PO (09:31)
[2023-12-23] MEDS: LOSARTAN POTASSIUM 100 MG TABLET PO (09:31)
[2023-12-23] MEDS: ENOXAPARIN 40 MG/0.4 ML SYRINGE SUB-Q (09:31)
[2023-12-23] MEDS: ATORVASTATIN 20 MG TABLET PO (09:31)
[2023-12-23] MEDS: AZELASTINE HCL NASAL 0.1% 137 MCG/SPR 30 ML BTL 1 SPRAY NASAL (09:31)
== END 2023-12-23 11:15 | disposition home or self-care (01) | DRG 872 ==
LOC: ANHED 05:20 → ANH2MED 06:24
PROVIDERS: General Practice; Admitting Provider Internal Medicine; Emergency Provider Emergency Medicine; PCP Physician Assistant; Visit Provider Hospitalist
DX: A41.9 Sepsis, unspecified organism (principal); L03.115 Cellulitis of right lower limb; Z68.45 Body mass index [BMI] 70 or greater, adult; I10 Essential (primary) hypertension; I89.0 Lymphedema, not elsewhere classified; J45.909 Unspecified asthma, uncomplicated; E78.5 Hyperlipidemia, unspecified; E66.01 Morbid (severe) obesity due to excess calories; E11.9 Type 2 diabetes mellitus without complications; E55.9 Vitamin D deficiency, unspecified; G47.33 Obstructive sleep apnea (adult) (pediatric); F32.A Depression, unspecified; F41.9 Anxiety disorder, unspecified
CPT/HCPCS: 36415; 80048; 80053; 80202; 82565; 82948; 83605; 83735; 85025; 85027; 85610; 85730; 86140; 87040; 93971; 99285; A9270; J0692; J1650; J3370; J7120

== ENCOUNTER 2025-04-14 12:11 | Emergency (ER) | payer BC, SELFPAY ==
--- OUTSIDE RECORDS SUMMARY | 2025-04-14 12:14 | XMS_ITS | Clinical Summary ---
Author Organization [employer] [facility] Address [address] 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
--- OUTSIDE RECORDS SUMMARY | 2025-04-14 12:14 | XMS_ITS | Patient Health Record ---
Author Organization [facility] Address [address] [address] Care Team Providers Care Digital Strategist Name Role Phone Babatunde Palm Primary Care Provider Unavailab hiram SP, RAFFI Unavailable [phone] Allergies No Known Allergies Reason For Referral No Information Medications Medication SIG (Take, Route, Frequency, Duration) Notes Start Date End Date Status Multivitamin - 1 tablet Orally Once a day; Duration: 30 day(s) Active D3 50 MCG (1999 UT) 1 tablet Orally Once a day; Duration: 30 day(s) Active Montelukast Sodium 10 MG 1 tablet Orally Once a day; Duration: 30 day(s) Active Losartan Potassium 100 MG 1 tablet Orall y Once a day; Duration: 30 day(s) Active metFORMIN HCl 500 MG 1 tablet with a michelle l Orally Once a day; Duration: 30 day(s) Active Magnesium 300 MG 1 capsule with a michelle l Orally Once a day; Duration: 30 day(s) Active B12 5000 MCG as directed Sublingual Active Spironolactone 25 MG TAKE 1 TABLET BY [facility] EVERY DAY FOR 30 DAYS; Duration: 90 Active Atorvastatin Calcium 20 MG 1 tablet Oral ly Once a day; Duration: 30 day(s) Active Symbicort 80-4.5 MCG/ACT 2 puffs Inhalat ion Once a day Active Social History Tobacco Use: Social History Observation Description Date Details (start date - stop date) Never Smoker NA - NA Tobacco Use/Smoking Question Answer Notes Are you a nonsmoker Problems Problem Type SNOMED Code ICD Code Onset Dates Problem Status W/U Status Risk Notes Problem Obesity (938560630) Obesity (BMI 35.0-39.9 without comorbidity) (E66.9) Active confirmed Problem Pain co-occurrent and due to varicose veins of bilateral legs (13396063652103 100) Varicose veins of leg with pain, bilateral (I83.813) Active confirmed Problem Lymphedema (42080825) Lymphedema (I89.0) Active confirmed Plan Of Treatment No Information Insurance Providers Payer Name Payer Address Payer Phone Subscriber Number Group Number Insured Name Patient Relationship to Insured Coverage Start Date Coverage End Date [employer] [facility] [address] [place] [address] [id number] Mike Kemp Self - patient is the insured Medical (General) History Medical History History ICD Code HTN Asthma Diabetes Lymphedema I89.0 Varicose veins of leg with pain, bilater al I83.813 Surgical History Surgery Date(Month/Year)
--- OUTSIDE RECORDS SUMMARY | 2025-04-14 12:14 | XMS_ITS | Encounter Summary ---
Author Organization [employer] Address 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
--- OUTSIDE RECORDS SUMMARY | 2025-04-14 12:14 | XMS_ITS | Clinical Summary ---
Author Organization [facility] Address [address], [facility] [address] [place] [address] Phone Care Team Providers Care Oil Tank Car Cleaner Name Role Phone Unavailable Primary Care Provider Unavailabl e Medications polyethylene glycol (MIRALAX) Powder Mix the entire bottle with 64 oz of a clear liquid. Use as directed by the office for colonoscopy prep. 255 g 0 6 Active Social History Tobacco Use Types Packs/Day Years Used Date Smoking Tobacco: Never Assessed Sex and Gender Information Value Date Recorded Sex Assigned at Not on file Legal Sex Male 11:02 AM CDT Gender Identity Not on file Sexual Orientation Not on file Plan of Treatment Health Maintenance Due Date Last Done Comments Hepatitis C Virus (HCV) Screening 1993 TdaP Immunization 1993 Hepatitis B Immunization (1 of 3 - 19+ 3-dose series) 2012 Human Papillomavirus (HPV) Immunization (1 - 3-dose SCDM series) 2020 SARS-COV-2 Immunization ( - 2023- season) 2024 Influenza Immunization (#1) 2025 Respiratory Syncytial Virus (RSV) Immunization (Adult) (1 - 1-dose 75+ series) 2068 Meningococcal Immunization (ACWY) Aged Out No longer eligible based on patient's age to complete this topic Pneumococcal Immunization Combined Aged Out No longer eligible based on patient's age to complete this topic Rotavirus Immunization Aged Out No lo nger eligible based on patient's age to complete this topic
--- OUTSIDE RECORDS SUMMARY | 2025-04-14 12:14 | XMS_ITS | Clinical Summary ---
Author Organization [facility] Address [address] [place] [address] Care Team Providers Care Gameplay Programmer Name Role Phone Joyce Feliz MD Unavailable Joyce Feliz MD Primary Care Provider [phone] Source Comments [facility],non-owned Affiliates and Associated Physician Practices is amultiple site organization consisting of ambulatory clinics and hospital sitesin [place], [place], [place] and [place]. This disclosure is being madepursuant to the Care Everywhere program and may not contain all information available regarding this patient. Last updated 18.[facility] Allergies Active Allergy Reactions Criticality Noted Date Comments Peanut Oil Urticaria 07/22/2009 Medications * Be aware that medications may not be up to date on this document. Alwaysverify current medications with the patient. ZYRTEC PO Take by mouth daily. prn Active SUDAFED 12 HOUR PO Take by mouth as needed Active mometasone (NASONEX) 50 MCG/ACT nasal spray [place] 2 Sprays into each nostril daily. 3 5 07/22/2009 Active olopatadine (PATADAY) 0.2 % ophthalmic solution Instill 1 Drop into both eyes daily. 30 day supply 3 12/16/2009 Active levalbuterol (XOPENEX HFA) 45 MCG/ACT inhaler Inhale 2 Puffs by mouth every 6 hours. 1 Inhaler 3 04/14/2011 Active Immunizations Immunization Administration Dates Next Due DPT 01/14/1999, 5,03/10/1994,1993,10/23/18 94 HEP B VACCINE, PED/ADOL 08/17/1999,03/17/1999, HIB BOOSTER 04/22/1995,1993,1993 INFLUENZA VACCINE 08/09/2003 MMR 01/14/1999,04/22/1995 PNEUMOCOCCAL PPSV23 08/09/2003 POLIO OPV 01/14/1999,04/22/1995,1993 ,1993 PPD 04/20/2002,01/14/1999 TDAP (7yrs+) 07/22/2009 VARICELLA 07/22/2009,06/10/2000 Social History Tobacco Use Types Packs/Day Years Used Date Smoking Tobacco: Never Assessed Sex and Gender Information Value Date Recorded Sex Assigned at Not on file Legal Sex Male 5:41 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 Gender Identity Not on file Sexual Orientation Not on file Last Filed Vital Signs Vital Sign Reading Time Taken Comments Blood Pressure - - Pulse - - Temperature 36.7 C (98 F) 10/09/2009 4:29 PM AUTOMOTIVE SERVICE MANAGEMENT TEACHER Respiratory Rate - - Oxygen Saturation - - Inhaled Oxygen Concentration - - Weight 133.7 kg (294 lb 12.8 oz) 10/09/2009 4:29 PM AUTOMOTIVE SERVICE MANAGEMENT TEACHER Height 165.1 cm (5' 5) 10/09/2009 4:29 PM AUTOMOTIVE SERVICE MANAGEMENT TEACHER Body Mass Index 49.06 10/09/2009 4:29 PM AUTOMOTIVE SERVICE MANAGEMENT TEACHER Plan of Treatment Health Maintenance Due Date Last Done Comments HIV SCREENING 2008 HEPATITIS C SCREENING 08/16/2011 DTAP/TDAP/TD VACCINES (7 - Td or Tdap) 07/22/2019 07/22/2009, 01/14/1999, 04/22/1995, Additional history exists HPV VACCINE (1 - 3-dose SCDM series) 2020 COVID-19 VACCINE ( season) 2024 DEPRESSION SCREENING 09/05/2024 INFLUENZA VACCINE (#1) 2025 08/09/2003 ZOSTER VACCINE (1 of 2) 2043 HIB VACCINE Completed 04/22/1995, 12/04, 1993 HEPATITIS B VACCINE Completed 08/17/1999, 03/17/1999, 02/05/1999 PNEUMOCOCCAL VACCINE Aged Out 08/09/2003 No long er eligible based on patient's age to complete this topic MENINGOCOCCAL (Group B) VACCINE SHARED DECISION-MAKING Aged Out No longer eligible based on patient's age to complete this topic MENINGOCOCCAL GROUPS A/C/Y/W VACCINE Aged Out No longer eligible based on patient's age to complete this topic Care Teams Gameplay Programmer Relationship Specialty Start Date End Date Joyce Feliz MD PCP - Pediatrics 07/21/09 Joyce Feliz MD PCP - General Pediatrics 03/14/12
--- OUTSIDE RECORDS SUMMARY | 2025-04-14 12:14 | XMS_ITS | Clinical Summary ---
Author Organization [facility] Address [address] [place] [address] Care Team Providers Care Hardwood Finisher Name Role Phone Babatunde Palm MD Primary Care Provider [phone] Allergies Active Allergy Reactions Criticality Noted Date Comments Egg Hives Medium 03/01/2022 With raw egg Lisinopril Chest tightness,Rash Medium 07/21/2020 chest tightness Peanut Hives Medium 03/01/2022 Peanut Oil Hives,Urticaria Medium 07/22/2009 Medications budesonide-formo teroL (SYMBICORT) 160-4.5 mcg/actuation inhaler 2 puffs 2 (two) times a day 07/23/2020 Active cholecalciferol (VITAMIN D-3) 5,000 unit tablet 5,000 Units 08/01/2020 Active glucose 4 gram chewable tablet 16,000 mg 08/01/2020 Act charanjit levalbuterol (XOPENEX HFA) 45 mcg/actuation inhaler Inhale 2 puffs every 6 (six) hours 04/14/2011 Active losartan (COZAAR) 100 mg tablet 100 mg 07/23/2020 Active melatonin 5 mg tablet 5 mg 08/01/2020 Active metFORMIN (GLUCOPHAGE) 500 mg tablet 500 mg 2 (two) times a day with meals 06/21/2020 Active montelukast (SINGULAIR) 10 mg tablet 07/06/2020 Active albuterol HFA (PROVENTIL HFA,VENTOLIN HFA,PROAIR HFA) 90 mcg/actuation inhaler 08/01/2020 Active benzonatate (TESSALON) 100 mg capsule 08/01/2020 Active atorvastatin (LIPITOR) 20 mg tablet Take 20 mg by mouth daily 12/21/2021 Active Active Problems Problem Noted Date Diagnosed Date Sepsis 03/02/2022 Cellulitis of right lower extremity 03/01/2022 BMI 70 and over, adult ([facility]) 01/08/2021 Assessment & Plan (01/08/2021 9:39 AM CDT): Patient is morbidly obese. I discussed with him that he needs to lose weight and this would help significantly with his lymphedema. It was also discussed that it would obviously help with many other comorbidities as well. Cellulitis of multiple sites of head and neck Hyperleukocytosis 12/18/2020 Vitamin D insufficiency 12/18/2020 Type 2 diabetes mellitus wit hout complication, without long-term current use of insulin ([place]) 09/22/2020 Assessment & Plan (01/08/2021 9:40 AM CDT): Followed by his PCP and controlled on his current medications. Assessment & Plan (09/22/2020 11:47 AM ELECTRONICS LEAD): Followed by his PCP and currently on metformin. Venous reflux 09/22/2020 Assessment & Plan (09/22/2020 11:47 AM ELECTRONICS LEAD): He does have venous reflux of the bilateral great saphenous veins. However this is not the current issue at hand as he has lymphedema and exacerbation there of. Plan is for compression and elevation at this time. Lymphedema 09/22/2020 Assessment & Plan (01/08/2021 9:40 AM CDT): Patient has significant lymphedema of the bilateral lower extremities worse on the right. He has been able to keep it controlled with his lymphedema pump, compression therapy and elevation. My recommendation is to continue the lymphedema pump and elevation of his legs as much as he can. Weight loss would also be significantly beneficial. He can follow up as needed. Assessment & Plan (09/22/2020 11:47 AM ELECTRONICS LEAD): Patient has lymphedema of the bilateral lower extremities with an exacerbation currently on the right. He says at this time his leg is too big to be able to get in to compression therapy and will have to use Rufino wraps for compression. He says that he has been trying to walk as much as he can for exercise and keep his legs elevated when he is not up and walking. He says in the morning the edema is better but it is pretty significant at this time. Will plan to continue the compression as he is able and elevation. He has some erythema of the leg but it does not look cellulitic at this time. I will also get him a lymphedema pump as to help get the swelling down even further to be able to get him in to compression stockings. I will have him follow up in 3 months. Essential hypertension 09/22/2020 Assessment & Plan (01/08/2021 9:39 AM CDT): Followed by his PCP and controlled on his current medications. Assessment & Plan (09/22/2020 11:45 AM ELECTRONICS LEAD): Followed by his PCP and controlled on medications at this time. Acute hypoxemic respiratory failure due to severe acute respiratory syndrome coronavirus 2 (SARS-CoV-2) disease 09/02/2020 Acute pneumonitis 09/02/2020 Acute respiratory failure with hypoxia 0 Pneumonia due to 2019-nCoV 09/02/2020 Assessment & Plan (09/22/2020 11:48 AM ELECTRONICS LEAD): Patient has recovered from his COVID pneumonia but is currently on inhalers as needed. Stable asthma 09/02/2020 Assessment & Plan (01/08/2021 9:41 AM CDT): Followed by his PCP and controlled on his medications. Viral pneumonia 09/02/2020 Immunizations Immunization Administration Dates Next Due Hep B, Adolescent or Pediatric 08/17/1999,1998,02/05/1999 Hib (PRP-D) 04/22/1995,1993,1993 Influenza, Unspecified 08/09/2003 MMR 01/14/1999,04/22/1995 OPV 01/14/1999, 5,1993,10/23 Pfizer SARS-CoV-2 Monovalent Vaccination (12+ Yrs) PURPLE 12/25/2020 Pneumococcal Polysaccharide PPV23 08/09/2003 Tdap 07/22/2009 Varicella 07/22/2009,06/10/2000 Medical History Medical History Date Comments Asthma Respiratory failure (HCC) Family History Medical History Relation Name Comments Coronary artery disease Father Relation Name Status Comments Father Social History Tobacco Use Types Packs/Day Years Used Date Smoking Tobacco: Never Smokeless Tobacco: Never Personal Safety Answer Date Recorded Getting School Help Needed Not on file 08/21 Sex and Gender Information Value Date Recorded Sex Assigned at Not on file Legal Sex Male 12:33 AM ELECTRONICS LEAD Gender Identity Not on file Sexual Orientation Not on file Obstetrics History Last Filed Vital Signs Vital Sign Reading Time Taken Comments Blood Pressure 140/81 03/05/2022 11:47 AM CDT Pulse 82 03/05/2022 11:47 AM CDT Temperature 36.7 C (98 F) 03/05/2022 11:47 AM CDT Respiratory Rate 16 03/05/2022 11:4 7 AM CDT Oxygen Saturation 96% 03/05/2022 11: 47 AM CDT Inhaled Oxygen Concentration - - Weight 230.3 kg (507 lb 12.8 oz) 2021 12:14 AM CDT Height 167.6 cm (5' 5.98) 03/02/2022 1 2:14 AM CDT Body Mass Index 82 03/02/2022 12:14 AM CDT Plan of Treatment Health Maintenance Due Date Last Done Comments Albumin Creatinine Ratio, Urine 1993 Depression Screening 1993 Hepatitis C Screening 1993 Dilated Eye Exam 1993 Foot Exam 1993 Pneumococcal vaccine <65 (2 of 2 - PCV) 08/09/2004 08/09/2003 Regular Well Visit/Exam 18-64 2011 DTaP/Tdap/Td Vaccine (2 - Td or Tdap) 07/22/2019 07/22/2009 HPV Vaccines (1 - 3-dose SCD M series) 2020 Lipid Panel 07/23/2021 07/23/2020 Hemoglobin A1C 09/02/2022 03/03/2022, 07/27/2020 eGFR 03/05/2023 03/05/2022, 02/05, 03/03/2022, Additional history exists Covid-19 Vaccine (2 2023-2 5 season) 2024 12/25/2020 Influenza Vaccine (#1) 2025 08/09/2003 Hepatitis B Screening Completed 08/17/1999 , 03/17/1999, 02/05/1999 Varicella Vaccines Completed 07/22/2009, 06/10/2000 Procedures Procedure Name Priority Date/Time Associated Diagnosis Comments EGFR Routine 03/05/2022 5:22 AM CDT HEMOGLOBIN A1C Routine 03/03/2022 5:19 AM CDT TNI WITH LIPID PANEL Routine 07/23/2020 7:29 AM ELECTRONICS LEAD from Last 3 Months or Most Recently Relevant to Health Maintenance Results * eGFR (03/05/2022 5:22 AM CDT) eGFR 119 mL/min/1. 73 m2 [facility] Comment: Interpretive Data Reference Interval Normal >/= 90 mL/min/1.73m2 Mildly decreased* 60 - 89 mL/min/1.73m2 Mildly to moderately decreased 45 - 59 mL/min/1.73m2 Moderately to severely decreased 30 - 44 mL/min/1.73m2 Severely decreased 15 - 29 mL/min/1.73m2 Kidney Failure < 15 mL/min/1.73m2 *Relative to young adult level Estimated glomerular filtration rate is determined by the 2020 CKD-EPI equation recommended by the National Kidney Foundation (A Unifying Approach to GFR Estimation: Recommendations of the NKF-ASK Task Force on Reassessing the Inclusion of Race in Diagnosing Kidney Disease, JASN 2020). The CKD-EPI equation should not be used for patients with unstable renal function and has not been validated in children and those over 70. Current interpretive data was last reviewed 2021. Testing performed by: [facility], [address] [place] [address], [place]., [address] Blood 03/05/2022 5:22 AM CDT 03/05/2022 5:35 AM CDT Heidi Miguel A Mcneilfroylan DELUCA LAB BLOOD ORDERABLES Final Re sult Performing Organization Address City/[facility]/ZIP Co de Phone Number [facility] [address] [place] [address] * (ABNORMAL) Hemoglobin A1c (03/03/2022 5:19 AM CDT) Pathologist [facility] Hgb A1C 6.6(H) 4.0 - 5.6 % [facility] Comment:Testing performed by : [facility], [address] [place] [address]., [address] Estimated Average Glucose 143 mg/dL [facility] Comment: The ADA recommends reporting an estimated Average Glucose (eAG) with all Hemoglobin A1c results using the equation derived from a study of 507 normal and diabetic adults. Minority populations were underrepresented and children were not included. (Diabetes Care 31:7908-3171, 2008). The eAG is not equivalent to a fasting glucose. Testing performed by: [facility], [address] [place] [address]., [address] Blood 03/03/2022 5:19 AM CDT 03/03/2022 6:12 AM CDT Heidi Kaye DO LAB BLOOD ORDERABLES Final Re sult Performing Organization Address City/[facility] Co de Phone Number [facility] [address] [place] [address] * TNI with LIPID PANEL (07/23/2020 7:29 AM ELECTRONICS LEAD) [facility] Troponin I <0.300 0.000 - 0.300 ng/mL [facility] Comment: Reference using MAVERICK Chemiluminescence Negative: Repeat in 4-6 hours as indicated. Triglycerides 138 0 - 149 mg/dL [facility] Comment: National Lipid Association/NCEP Guidelines: Normal < 150 mg/dL Borderline high 150-199 mg/dL High 200-499 mg/dL Very High >=500 mg/dL Cholesterol 137 0 - 199 mg/dL [facility] Comment: National Lipid Association/NCEP Guidelines: Desirable < 200 mg/dL Borderline high: 200-239 mg/dL High Risk: >=240 mg/dL HDL Cholesterol 23 mg/dL [facility] Comment: Reference Ranges: Males: >=40 mg/dL Females: >=50 mg/dL LDL Cholesterol, Calc 86 0 - 129 mg/dL [facility] Comment: National Lipid Association/NCEP Guidelines: Optimal < 100 mg/dL Near Optimal 100-129 mg/dL Borderline high 130-159 mg/dL High >=160 mg/dL Cholesterol/HDL Ratio 6.0 [facility] Comment: Optimal < 3.5:1 High > 5:1 07/23/2020 7:29 AM ELECTRONICS LEAD 07/23/2020 7:59 AM ELECTRONICS LEAD Narrative [facility] - 07/23/2020 9:45 AM ELECTRONICS LEAD RAC BC Draw Resulting Agency Comment ER us Obed Gomez MD LAB BLOOD ORDERABLES Final Resul t [facility] [address] [phone] from Last 3 Months or Most Recently Relevant to Health Maintenance Insurance [employer] OOS [employer] BLUE ACC CHOICE OOS Advance Directives For more information, please contact: [phone] * Full Code (Latest Code Status on File) Date Activated Date Inactivated Comments 03/01/2022 11:23 PM 03/05/2022 7:29 PM Care Teams Hardwood Finisher Relationship Specialty Start Date End Date Babatunde Palm MD [address] [facility] [address] [place] [address] PCP - General 07/21/20
[2025-04-14 12:51] VITALS: BP 133/82; PULSE 108; RESP 18; TEMP 36.3; O2SAT 99
--- OUTSIDE RECORDS SUMMARY | 2025-04-14 13:49 | XMS_ITS | Encounter Summary ---
Author Organization [facility] Address [address] [place] [address] Care Team Providers Care Manager Consumer Insights Name Role Phone Edwin Luis Primary Care Provider Unavailabl e Encounter Details Date Type Department Care Team (Latest Contact Info) Description 10/19/2001 Outpatient Historical [facility] Bernardo Bonilla MD [address] [address] HYPERTROPHY ADENOIDS (Primary Dx) Social History Tobacco Use Types Packs/Day Years Used Date Smoking Tobacco: Never Assessed Sex and Gender Information Value Date Recorded Sex Assigned at Not on file Legal Sex Male 5:12 AM ORNAMENTAL METAL WORKER Gender Identity Not on file Sexual Orientation Not on file documented as of this encounter Plan of Treatment Not on file documented as of this encounter Visit Diagnoses Diagnosis Hypertrophy of adenoids alone- Primary documented in this encounter Care Teams Manager Consumer Insights Relationship Specialty Start Date End Date Edwin Luis PCP - General 10/19/01 documented as of this encounter
--- OUTSIDE RECORDS SUMMARY | 2025-04-14 13:49 | XMS_ITS | Clinical Summary ---
Author Organization [facility] Address [address] [place]: Epic Prelude ADT [place] [address] Care Team Providers Care Corporate Logistics Manager Name Role Phone Edwin Luis Primary Care Provider Unavailabl e Social History Tobacco Use Types Packs/Day Years Used Date Smoking Tobacco: Never Assessed Sex and Gender Information Value Date Recorded Sex Assigned at Not on file Legal Sex Male 5:12 AM LEAF FAT SCRAPER Gender Identity Not on file Sexual Orientation Not on file Plan of Treatment Health Maintenance Due Date Last Done Comments HPV VACCINES (1 - Male 3-dose series) 2008 DTAP/TDAP/TD VACCINES (1 - Tdap) 2012 HEPATITIS B VACCINES (1 of 3 - 19+ 3-dose series) 08/05 INFLUENZA VACCINE (#1) 2025 Care Teams Corporate Logistics Manager Relationship Specialty Start Date End Date Edwin Luis PCP - General 10/19/01
--- OUTSIDE RECORDS SUMMARY | 2025-04-14 13:49 | XMS_ITS | Clinical Summary ---
Author Organization [facility] Address [address] [place] [address] Care Team Providers Care Soft Top Installer Name Role Phone Babatunde Palm MD Primary Care Provider [phone]- [phone] Allergies Active Allergy Reactions Criticality Noted Date [...] extremity 03/01/2022 BMI 70 and over, adult ([facility]) 01/08/2021 Assessment & Plan (01/08/2021 [...] complication, without long-term current use of insulin ([facility]) 09/22/2020 Assessment & Plan (01/08/2021 9:40 AM CDT): Followed by his PCP and controlled on his current medications. Assessment & Plan (09/22/2020 11:47 AM GLASS FINISHER): Followed by his PCP and currently on metformin. Venous reflux 09/22/2020 Assessment & Plan (09/22/2020 11:47 AM GLASS FINISHER): He does have venous reflux of the [...] needed. Assessment & Plan (09/22/2020 11:47 AM GLASS FINISHER): Patient has lymphedema of the bilateral lower [...] medications. Assessment & Plan (09/22/2020 11:45 AM GLASS FINISHER): Followed by his PCP and controlled on medications at this time. Acute hypoxemic respiratory failure due to severe acute respiratory syndrome coronavirus 2 (SARS-CoV-2) disease 09/02/2020 Acute pneumonitis 09/02/2020 Acute respiratory failure with hypoxia 0 Pneumonia due to 2019-nCoV 09/02/2020 Assessment & Plan (09/22/2020 11:48 AM GLASS FINISHER): Patient has recovered from his COVID pneumonia [...] on file Legal Sex Male 12:33 AM GLASS FINISHER Gender Identity Not on file Sexual Orientation [...] WITH LIPID PANEL Routine 07/23/2020 7:29 AM GLASS FINISHER from Last 3 Months or Most Recently [...] was last reviewed 2021. Testing performed by: [facility], [address] [place] [address], [place]., [address] Blood 03/05/2022 5:22 AM CDT 03/05/2022 5:35 AM CDT Heidi Miguel A Mcneilfroylan DELUCA LAB BLOOD ORDERABLES Final Re sult Performing Organization Address City/[facility]/ZIP Co de Phone Number [facility]OT[facility] [address] [place] [address] * (ABNORMAL) Hemoglobin A1c (03/03/2022 5:19 AM CDT) Pathologist [facility] Hgb A1C 6.6(H) 4.0 - 5.6 % [facility] Comment:Testing performed by : [facility], [address] [place] [address]., [address] Estimated Average Glucose 143 mg/dL [facility] Comment: The ADA recommends reporting an estimated Average Glucose (eAG) with all Hemoglobin A1c results using the equation derived from a study of 507 normal and diabetic adults. Minority populations were underrepresented and children were not included. (Diabetes Care 31:1497-7265, 2008). The eAG is not equivalent to a fasting glucose. Testing performed by: [facility], [address] [place] [address]., [address] Blood 03/03/2022 5:19 AM CDT 03/03/2022 6:12 AM CDT Heidi Kaye DO LAB BLOOD ORDERABLES Final Re sult Performing Organization Address City/[facility] Co de Phone Number [facility] [address] [place] [address] * TNI with LIPID PANEL (07/23/2020 7:29 AM GLASS FINISHER) [facility] Troponin I <0.300 0.000 - 0.300 ng/mL [facility] Comment: Reference using MAVERICK Chemiluminescence Negative: Repeat in 4-6 hours as indicated. Triglycerides 138 0 - 149 mg/dL [facility] Comment: National Lipid Association/NCEP Guidelines: Normal < 150 mg/dL Borderline high 150-199 mg/dL High 200-499 mg/dL Very High >=500 mg/dL Cholesterol 137 0 - 199 mg/dL [facility] Comment: National Lipid Association/NCEP Guidelines: Desirable < 200 mg/dL Borderline high: 200-239 mg/dL High Risk: >=240 mg/dL HDL Cholesterol 23 mg/dL [facility] Comment: Reference Ranges: Males: >=40 mg/dL Females: >=50 mg/dL LDL Cholesterol, Calc 86 0 - 129 mg/dL [facility] Comment: National Lipid Association/NCEP Guidelines: Optimal < 100 mg/dL Near Optimal 100-129 mg/dL Borderline high 130-159 mg/dL High >=160 mg/dL Cholesterol/HDL Ratio 6.0 [facility] Comment: Optimal < 3.5:1 High > 5:1 07/23/2020 7:29 AM GLASS FINISHER 07/23/2020 7:59 AM GLASS FINISHER Narrative [facility] - 07/23/2020 9:45 AM GLASS FINISHER RAC BC Draw Resulting Agency Comment ER us Obed Gomez MD LAB BLOOD ORDERABLES Final Resul t [facility] [address] [phone] from Last 3 Months or Most Recently Relevant to Health Maintenance Insurance [place] [employer] OOS CIGNA BLUE ACC CHOICE OOS Advance Directives For more information, please contact: [phone] * Full Code (Latest Code Status on File) Date Activated Date Inactivated Comments 03/01/2022 11:23 PM 03/05/2022 7:29 PM Care Teams Soft Top Installer Relationship Specialty Start Date End Date Babatunde Palm MD [address] [facility] [address] [place] [address] PCP - General 07/21/20
--- OUTSIDE RECORDS SUMMARY | 2025-04-14 13:49 | XMS_ITS | Clinical Summary ---
Author Organization [facility] Address [address] [place], [facility] [address] [place] [address] Phone Care Team Providers Care Certified Executive Chef Name Role Phone Unavailable Primary Care Provider [...]
--- OUTSIDE RECORDS SUMMARY | 2025-04-14 13:49 | XMS_ITS | Clinical Summary ---
Author Organization [facility] Address [address] [facility] [place] [address] Care Team Providers Care Assembler Motor Vehicle Name Role Phone Joyce Feliz MD Unavailable Joyce Feliz MD Primary Care Provider [phone] Source Comments [facility] [employer],non-owned Affiliates and Associated Physician Practices is amultiple site organization consisting of ambulatory clinics and hospital sitesin [place], [place], [place] and [place]. This disclosure is being madepursuant to the Care Everywhere program and may not contain all information available regarding this patient. Last updated 18.[facility] Allergies Active Allergy Reactions Criticality Noted Date Comments Peanut Oil Urticaria 07/22/2009 Medications * Be aware that medications may not be up to date on this document. Alwaysverify current medications with the patient. ZYRTEC PO Take by mouth daily. prn Active SUDAFED 12 HOUR PO Take by mouth as needed Active mometasone (NASONEX) 50 MCG/ACT nasal spray [place] 2 Sprays into each nostril daily. 3 [...] on file Legal Sex Male 5:41 AM ARCHEOLOGY PROFESSOR Gender Identity Not on file Sexual Orientation Not on file Last Filed Vital Signs Vital Sign Reading Time Taken Comments Blood Pressure - - Pulse - - Temperature 36.7 C (98 F) 10/09/2009 4:29 PM ARCHEOLOGY PROFESSOR Respiratory Rate - - Oxygen Saturation - - Inhaled Oxygen Concentration - - Weight 133.7 kg (294 lb 12.8 oz) 10/09/2009 4:29 PM ARCHEOLOGY PROFESSOR Height 165.1 cm (5' 5) 10/09/2009 4:29 PM ARCHEOLOGY PROFESSOR Body Mass Index 49.06 10/09/2009 4:29 PM ARCHEOLOGY PROFESSOR Plan of Treatment Health Maintenance Due Date [...] age to complete this topic Care Teams Assembler Motor Vehicle Relationship Specialty Start Date End Date Joyce Feliz MD PCP - Pediatrics 07/21/09 Joyce Feliz MD PCP - General Pediatrics 03/14/12
--- NOTE | 2025-04-14 14:01 | ED_ITS ---
HPI - General Adult General Chief complaint: Skin/Abscess/Foreign Body Stated complaint: skin infection to groin and thighs, not improving Time Seen by Provider: 04/14/25 13:41 History of Present Illness HPI narrative: 29-year-old male with history of obesity present to the emergency department for evaluation for worsening rash on his abdominal pannus and groin. Patient has been using [id number] powders and creams but is concerned that the symptoms are getting worse. Related Data Home Medications ?Medication ?Instructions ?Recorded ?Confirmed ?Last Taken ?Type multivitamin (Multiple Vitamins 1 tablet PO DAILY 09/17/19 10/15/24 Unknown History tablet) cholecalciferol (vitamin D3) 125 10,000 unit PO DAILY 12/19/20 10/15/24 Unknown History mcg (5,000 unit) capsule magnesium 250 mg tablet 250 mg PO Q12H 07/17/21 10/15/24 Unknown History mecobalamin (vitamin B12) 1,000 1,000 mcg PO HS 11/19/22 10/15/24 Unknown History mcg chewable tablet Metamucil 1 gummy PO DAILY 12/07/23 10/15/24 Unknown History Allergies Allergy/AdvReac Type Severity Reaction Status Date / Time peanut Allergy Severe Hives Verified 10/15/24 14:40 egg Allergy Mild Hives Verified 10/15/24 14:40 lisinopril Allergy Mild Unknown Verified 10/15/24 14:40 Review of Systems Review of Systems: All systems reviewed & are unremarkable except as noted in HPI and below PMFSH Past Medical History Medical History Morbid obesity Lymphedema of both lower extremities Asthma MAINOR (obstructive sleep apnea) Does not use CPAP at home Essential (primary) hypertension Body mass index (BMI) greater than 70 in adult (08/08/15) Anxiety and depression Hyperlipidemia Type 2 diabetes mellitus Vitamin D deficiency COVID-19 Morbid (severe) obesity due to excess calories BMI greater than 70 Surgical History Surgical History History of colonoscopy with polypectomy Approximately 2019 History of tonsillectomy Family History Family History Father Hypertension Diabetes mellitus Anemia History of heart surgery Colon cancer, Onset Age: 50 Mother Autoimmune disorder Grandparent Skin cancer Glaucoma Sibling Obesity Social History Social History Social History: The patient is single and lives with his parents. 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 He drinks 2-3 shots of Tequila every week or 2. Code status: Full code Surrogate decision maker: Shira Kemp (mother) Smoking status: Never smoker Second hand tobacco smoke exposure: No Alcohol intake: current Drinks per week: 1 Substance use: never Substance use type: does not use Do You Feel Safe in your Home?: Yes Lack of Transportation: No Lack of Food: Never True Current Housing: I Have Housing Concerned About Future Housing: No Difficulty Paying Gas/Electric Bills: No Difficulty Paying for Meds: No Currently Unemployed: No Education: Associate Degree Difficulty w/ Childcare or Family Care: No Living arrangements: with family Occupation/Education: occupation 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 HEAD: normocephalic, atraumatic. EYES: PERRLA/EOMI, conjunctivae clear. NOSE: Normal no drainage EARS:TMS clear with good light reflex. THROAT: Pharynx clear, no exudate. NECK: Supple. No adenopathy, no masses. RESPIRATORY: Airway patent, respirations nonlabored. Clear to auscultation bilaterally, no rales, rhonchi, wheezing. CARDIOVASCULAR: Regular rate and rhythm without murmurs rubs or gallops. ABDOMINAL: Soft, nontender, nondistended, normal bowel sounds MUSCULOSKELETAL: Moves all extremities. Strength/ROM intact, No edema, No calf tenderness. NEURO: Alert. Cranial nerves II through XII intact. Good gait. Good coordination SKIN: Erythema under the pannus and bilateral groin, possible cellulitis, possible worsening Genie infection Course Vital Signs Vital signs: Vital Signs Temperature 97.4 F L 04/14/25 12:51 Pulse Rate 108 H 04/14/25 12:51 Respiratory Rate 18 04/14/25 12:51 Blood Pressure 133/82 04/14/25 12:51 Pulse Oximetry 99 04/14/25 12:51 Oxygen Delivery Room Air 04/14/25 12:51 Temperature 97.4 F L 04/14/25 12:51 Pulse Rate 94 04/14/25 14:42 Respiratory Rate 20 04/14/25 14:42 Blood Pressure 138/88 04/14/25 14:42 Pulse Oximetry 99 04/14/25 14:42 Oxygen Delivery Room Air 04/14/25 12:51 Medical Decision Making MDM Narrative Medical decision making narrative: 29-year-old male present to the emergency department for evaluation of worsening rash. Patient has been using a [id number] antifungal cream under the pannus and I believe this is keeping the area excessively moist and worsening his infection. Area was cleaned and patient was treated with a nystatin powder. Patient is also being started on Keflex to treat for possible underlying superinfection/cellulitis. Differential Diagnosis Differential Diagnosis: Cellulitis, candidiasis Vital Signs Vital Signs: Vital Signs Temperature 97.4 F L 04/14/25 12:51 Pulse Rate 108 H 04/14/25 12:51 Respiratory Rate 18 04/14/25 12:51 Blood Pressure 133/82 04/14/25 12:51 Pulse Oximetry 99 04/14/25 12:51 Oxygen Delivery Room Air 04/14/25 12:51 Temperature 97.4 F L 04/14/25 12:51 Pulse Rate 94 04/14/25 14:42 Respiratory Rate 20 04/14/25 14:42 Blood Pressure 138/88 04/14/25 14:42 Pulse Oximetry 99 04/14/25 14:42 Oxygen Delivery Room Air 04/14/25 12:51 Discharge Plan Discharge Clinical Impression: Cellulitis, Genie infection Patient Disposition: Home Condition: Stable Instructions: Antibiotic Form, Cellulitis (ED), Yeast Infection (ED) Additional Instructions: Stop using any steroid cream or antifungal cream on the rash. Using antifungal powder. Antibiotic as directed until completed. Have close follow-up with your primary care physician. Patient Language: Malay Prescriptions: New cephalexin 500 mg capsule 500 mg PO Q8H 7 Days Qty: 21 0RF nystatin 100,000 unit/gram powder 1 applic topical BID Qty: 60 0RF No Action magnesium 250 mg tablet 250 mg PO Q12H mecobalamin (vitamin B12) 1,000 mcg tablet,chewable 1,000 mcg PO HS (DME) blood-glucose meter [Accu-Chek Guide Glucose Meter] Misc See Rx Instructions .Route Qty: 1 0RF Rx Instructions: As directed (DME) Accu-Chek Guide test strips Strip See Rx Instructions .Route Qty: 100 11RF Rx Instructions: 2 times daily amlodipine 5 mg tablet 5 mg PO DAILY Qty: 90 1RF multivitamin [Multiple Vitamins] Tablet 1 tablet PO DAILY cholecalciferol (vitamin D3) 125 mcg (5,000 unit) capsule 10,000 unit PO DAILY Metamucil 1 gummy PO DAILY metformin 500 mg tablet 500 mg PO BID Qty: 180 2RF albuterol sulfate 90 mcg/actuation HFA aerosol inhaler 2 puff INHALATION Q4-6H PRN (Reason: shortness of breath or wheezing) Qty: 8.5 2RF fluticasone propion-salmeterol [Wixela Inhub] 250-50 mcg/dose blister with device 1 inh inhalation BID Qty: 180 2RF atorvastatin 20 mg tablet 20 mg PO DAILY Qty: 90 2RF montelukast 10 mg tablet 10 mg PO HS Qty: 90 3RF Rx Instructions: TAKE 1 TABLET BY MOUTH EVERY DAY Ozempic 0.25 mg or 0.5 mg (2 mg/3 mL) pen injector 0.25 mg subcut WEEKLY Qty: 6 0RF Rx Instructions: take 0.25 mg subcutaneous once a week for 4 weeks then 0.5 mg once a week for 4 weeks valsartan 320 mg tablet 320 mg PO DAILY Qty: 90 2RF Follow-up/Referrals: Rakesh Gonsales DO [Primary Care Provider] -
[2025-04-14] MEDS: CEPHALEXIN 500 MG CAPSULE PO (14:08)
[2025-04-14 14:42] VITALS: BP 138/88; PULSE 94; RESP 20; O2SAT 99
== END 2025-04-14 14:43 | disposition home or self-care (01) ==
PROVIDERS: Emergency Provider Emergency Medicine; PCP Internal Medicine
DX: L03.311 Cellulitis of abdominal wall (principal); B37.2 Candidiasis of skin and nail; I10 Essential (primary) hypertension; E66.01 Morbid (severe) obesity due to excess calories; Z68.45 Body mass index [BMI] 70 or greater, adult; E78.5 Hyperlipidemia, unspecified; E11.9 Type 2 diabetes mellitus without complications; E55.9 Vitamin D deficiency, unspecified; G47.33 Obstructive sleep apnea (adult) (pediatric); F41.9 Anxiety disorder, unspecified; F32.A Depression, unspecified; Z86.16 Personal history of COVID-19; Z86.0100 Personal history of colon polyps, unspecified; Z79.84 Long term (current) use of oral hypoglycemic drugs; Z79.899 Other long term (current) drug therapy; Z79.85 Long-term (current) use of injectable non-insulin antidiabetic drugs
CPT/HCPCS: 99283; A9270